=== PATIENT | male | born 1980 | race Caucasian/White ===

== ENCOUNTER 2022-11-13 10:57 | Emergency (ER) | payer OTHER, SELFPAY ==
[2022-11-13 11:04] VITALS: BP 138/88; PULSE 104; RESP 16; TEMP 36.9; O2SAT 99
--- NOTE | 2022-11-13 11:04 | ED.SKABFB ---
HPI - Skin/Abscess/Foreign Bdy General Chief complaint: Skin/Abscess/Foreign Body Stated complaint: Laceration to Thumb Time Seen by Provider: 11/13/22 11:06 Source: patient and RN notes reviewed History of Present Illness HPI narrative: Patient is a 42-year-old male who presents to urgent care with complaints of a laceration to the right thumb. Patient states that occurred last night at around 8:00 p.m. on a vegetable can. Patient states he washed out and wrapped it. States he is unsure of when his last tetanus was. Denies any pain or swelling to the area. States that bleeding has been controlled since approximately midnight. Patient is not diabetic. No other acute complaints. No acute distress noted. Patient aware plan of care. Some parts of this dictation were generated by voice recognition software and may contain typographical and/or grammatical inaccuracies. Related Data Home Medications Medication Instructions Recorded Confirmed buspirone 5 mg tablet 5 mg PO BID PRN Anxiety 11/13/22 11/13/22 gabapentin 100 mg capsule 100 mg PO DAILY 11/13/22 11/13/22 lisinopril 10 mg tablet 10 mg PO DAILY 11/13/22 11/13/22 omeprazole 40 mg capsule,delayed 40 mg PO DAILY 11/13/22 11/13/22 release Allergies Allergy/AdvReac Type Severity Reaction Status Date / Time No Known Allergies Allergy Verified 11/13/22 11:11 Review of Systems Review of Systems: CONSTITUTIONAL: Denies fever, chills, or sweats. EYES: Denies visual changes, redness, or discharge. ENT: Denies rhinorrhea, congestion, sore throat, or otalgia. CARDIOVASCULAR: Denies chest pain, palpitations, or edema. RESPIRATORY: Denies cough or dyspnea. GASTROINTESTINAL: Denies abdominal pain, nausea, vomiting, or diarrhea. GENITOURINARY: Denies dysuria or hematuria. SKIN: Reports a laceration to the right thumb MUSCULOSKELETAL: Denies back pain, joint pain, or myalgia. NEUROLOGIC: Denies headache, numbness, or weakness. All other systems reviewed are negative, except as documented in HPI. PMFSH Comments At the time of my signature, I reviewed and agree with the nursing past medical, surgical, social, and family history. There is no relevant family history pertinent to the patient complaint. Exam Narrative: GENERAL: This is a well-nourished, well-developed patient, in no apparent distress. HEAD: normocephalic, atraumatic. EYES: PERRL. Sclera clear/white. Vision is grossly intact. EARS: External ears normal NOSE: External nose normal with no obvious nasal discharge, nares without redness, no rhinorrhea. THROAT: Mucous membranes moist NECK: Neck supple SKIN: 3cm linear laceration to the palmar Tuft of the right thumb, bleeding controlled. Warm, intact with no suspicious lesions or rash, good texture and turgor. NEURO: awake, alert, and oriented to person, place and time. There were no obvious focal neurologic abnormalities. EXTREMITIES: No erythema, edema or ecchymosis noted to the affected right thumb. Positive strong right radial pulse with capillary refill less than 2 seconds. Course Course Level of Care: Express Care Visit Vital Signs Vital signs: Vital Signs Temperature 98.4 F 11/13/22 11:04 Pulse Rate 104 H 11/13/22 11:04 Respiratory Rate 16 11/13/22 11:04 Blood Pressure 138/88 11/13/22 11:04 Pulse Oximetry 99 11/13/22 11:04 Oxygen Delivery Room Air 11/13/22 11:04 Temperature 98.4 F 11/13/22 11:04 Pulse Rate 104 H 11/13/22 11:04 Respiratory Rate 16 11/13/22 11:04 Blood Pressure 138/88 11/13/22 11:04 Pulse Oximetry 99 11/13/22 11:04 Oxygen Delivery Room Air 11/13/22 11:04 Reviewed MDM - Skin/Abscess/Foreign Bdy MDM Narrative Medical decision making narrative: You are now up-to-date on your tetanus shot. Advised patient to keep the tube gauze on for 24 hours unless it becomes soiled or saturated. Change the bandage as needed daily. Use the metal splint for protection while working. Unfortunately, a
[2022-11-13] MEDS: TETANUS,DIPHTHERIA,AC PERTUSSIS ADULT (0.5 ML) BOOSTRIX IM (11:23)
== END 2022-11-13 11:46 | disposition home or self-care (01) ==
PROVIDERS: Emergency Provider Nurse Practitioner Family; PCP Internal Medicine
DX: S61.011A Laceration without foreign body of right thumb without damage to nail, initial encounter (principal); W26.8XXA Contact with other sharp object(s), not elsewhere classified, initial encounter; Z23 Encounter for immunization
CPT/HCPCS: 29130; 90471; 90715; 99213; G0463

== ENCOUNTER 2024-12-14 11:51 | Emergency (ER) | payer OTHER, SELFPAY ==
[2024-12-14 11:56] VITALS: BP 142/91; PULSE 93; RESP 16; TEMP 37.2; O2SAT 97
[2024-12-14 12:02] VITALS: BP 142/91
--- NOTE | 2024-12-14 12:02 | ED_ITS ---
HPI - Wound/Laceration General Chief Complaint: Wound/Laceration Stated Complaint: Finger Injury Source: patient Mode of arrival: ambulatory Limitations: no limitations History of Present Illness HPI narrative: 44 y/o male presented for wound re-check. Reports a laceration sustained 2 days ago to right index finger with steri strips and glue placed at outside facility. Splint in place. Says he has had small amount of blood seeping from the wound. Denies any other complaints or concerns. Pt says he has not applied anything to the steri strips. Says tetanus was updated last year. Taking cephalexin as prescribed. Related Data Home Medications ?Medication ?Instructions ?Recorded ?Confirmed ?Last Taken ?Type buspirone 5 mg tablet 5 mg PO BID PRN Anxiety 11/13/22 11/13/22 Unknown History gabapentin 100 mg capsule 100 mg PO DAILY 11/13/22 11/13/22 Unknown History lisinopril 10 mg tablet 10 mg PO DAILY 11/13/22 11/13/22 Unknown History omeprazole 40 mg capsule,delayed 40 mg PO DAILY 11/13/22 11/13/22 Unknown History release Allergies Allergy/AdvReac Type Severity Reaction Status Date / Time No Known Allergies Allergy Verified 12/14/24 12:01 Review of Systems Review of Systems: CONSTITUTIONAL: Denies body aches, fever, chills, or sweats. CARDIOVASCULAR: Denies chest pain, palpitations, or edema. RESPIRATORY: Denies cough or dyspnea. GASTROINTESTINAL: Denies abdominal pain, nausea, vomiting, or diarrhea. SKIN: reports oozing laceration right index finger MUSCULOSKELETAL: Denies back pain, joint pain, or myalgia. NEUROLOGIC: Denies numbness, tingling, or weakness. PMFSH Comments At time of signature, I have reviewed and agree with nursing past medical, surgical, social and family history unless otherwise noted. Please see nursing chart for further information. There is no relevant family history pertinent to the presenting complaint Exam Narrative: GENERAL: Well-appearing EYES: conjunctivae clear, and EOMI. ENT: Mucous membranes moist. Oropharynx without edema, erythema or lesions. NECK: Supple CHEST: Clear to auscultation. HEART: Regular rate and rhythm. SKIN: Warm, dry. Right 2nd digit PIP with laceration and steri strips in place from outside facility, scant amount of blood oozing to the radial side of the laceration. CMS intact. Splint in place. NEURO: Alert and oriented x3. Course Course Emergency Course: Patient is aware of diagnosis, understands and agrees to treatment plan. Anticipatory guidance given. Patient agrees to follow-up as directed and is aware of reasons to seek care at the emergency department. Portions of this record may have been created with voice recognition software Level of Care: Express Care Visit Vital Signs Vital signs: Reviewed Procedures Laceration right index finger: ====== Skin Level ====== ====== Subcutaneous Layer ====== ====== Muscle Layer ====== ====== Tendon Layer ====== Dressing: Previously treated wound cleansed with skintegrity and sterile water. Steri strips reinforced. Pt requests to keep the splint from outside facility which appears to be appropriate. MDM - Wound/Laceration MDM Narrative Medical decision making narrative: Discussed physical exam findings, laceration >48 hours reinforced steri strips, will continue current splint and abx. No apparent infection noted. Advised supportive measures and signs/symptoms to go to the ER. Pt is appropriate for outpt treatment and f/u. Differential Diagnosis Differential diagnosis: Likely laceration, abrasion and avulsion of skin Discharge Plan Discharge Clinical Impression: Encounter for re-check of laceration wound Patient Disposition: Home, Self-Care Condition: Stable Instructions: Antibiotic Form, Skin Adhesive Strips (ED) Additional Instructions: Steri-Strips will roll off on their own within 14 days from application Do not soak your wound. Avoid frequent or prolonged contact with water, including heavy perspiration. This may loosen the skin glue before the wound is healed. Keep the area clean and dry - cleanse with warm water and mild soap and allow to fully dry. Leave the finger splint in place; keep it clean and dry. Continue the antibiotic as previously prescribed Watch for worsening symptoms including pain, redness, swelling, streaking, pus/drainage, fever. Go to the ER with any of these symptoms or concerns. Follow up with primary care provider in 1 week as needed. Patient Language: Vietnamese Prescriptions: No Action buspirone 5 mg tablet 5 mg PO BID PRN (Reason: Anxiety) omeprazole 40 mg capsule,delayed release(DR/EC) 40 mg PO DAILY lisinopril 10 mg tablet 10 mg PO DAILY gabapentin 100 mg capsule 100 mg PO DAILY cephalexin 500 mg capsule 500 mg PO Q12H Qty: 20 0RF Follow-up/Referrals: Amol,Kevan Cruz MD [Primary Care Provider] - Time of Disposition: 12:17
--- OUTSIDE RECORDS SUMMARY | 2024-12-14 13:14 | XMS_ITS | Encounter Summary ---
Author Organization [facility] Address [address] [place] [address] Phone Care Team Providers Care Gas Station Clerk Name Role Phone Kevan Carmichael MD Primary Care Provider [phone] Connor Underwood MD Unavailable Reason for Visit * Reason Comments Medication Refill Encounter Details Date Type Department Care Team (Late st Contact Info) Description 02/07/2024 Refill [facility] - Internal Medicine - [place] [address] [place] [address] Kevan Carmichael MD [address] [place] [address] Medication Refill Social History Tobacco Use Types Packs/Day Years Used Date Smoking Tobacco: Former Cigarettes 0.3 16.7 1 999 - 06/21/2015 Passive Smoke Exposure: Past Smokeless Tobacco: Never Alcohol Use Standard Drinks/Week Comments Yes 2 (1 standard drink = 0.6 oz pur e alcohol) Rare [facility] Utilities Answer Date Recorded In the past 12 months has [employer], gas, oil, or water company threatened to shut off services in your home? No 10/27/2023 Social Connection and Isolation Panel [NHANES] A nswer Date Recorded In a typical week, how many times do you talk on the phone with family, friends, or neighbors? Patient declined 10/27/2023 How often do you get togethe r with friends or relatives? Patient declined 10/27/2023 How often do you attend orthodox or mandaeism serv ices? Never 10/27/2023 Do you belong to any clubs o r organizations such as orthodox groups, unions, fraternal or athletic groups, or school groups? Patient declined 10/27/2023 How often do you attend meet ings of the clubs or organizations you belong to? Patient declined 10/27/2023 Are you , , di vorced, , never , or living with a partner? Never 10/27/2023 AUDIT-C Answer Date Recorded Q1: How often do you have a drink containing alc ohol? 2-4 times a month 10/27/2023 Q2: How many drinks containi ng alcohol do you have on a typical day when you are drinking? 1 or 2 10/27/2023 Q3: How often do you have si x or more drinks on one occasion? Never 10/27/2023 Overall Financial Resource Strain (CARDIA) Answe r Date Recorded How hard is it for you to pa y for the very basics like food, housing, medical care, and heating? Not very hard 10/27/2023 PHQ-2 Answer Date Recorded Total Score - Questions 1-9 0 11/19 [facility] - Occupational Stress Questionnaire Answer Date Recorded Do you feel stress - tense, restless, nervous, or anxious, or unable to sleep at night because your mind is troubled all the time - these days? Rather much 10/27/2023 Exercise Vital Sign Answer Date Recorde d On average, how many days pe r week do you engage in moderate to strenuous exercise (like a brisk walk)? 3 days 10/27/2023 On average, how many minutes do you engage in exercise at this level? 30 min 10/27/2023 Hunger Vital Sign Answer Date Recorded Within the past 12 months, y ou worried that your food would run out before you got the money to buy more. Never true 10/27/19 24 Within the past 12 months, t he food you bought just didn't last and you didn't have money to get more. Never true 10/27/2023 PRAPARE - Transportation Answer Date Re corded In the past 12 months, has l ack of transportation kept you from medical appointments or from getting medications? No 02/2024 In the past 12 months, has l ack of transportation kept you from meetings, work, or from getting things needed for daily living? No 10/27/2023 Housing Stability Vital Sign Answer To e Recorded In the last 12 months, was t here a time when you were not able to pay the mortgage or rent on time? Patient declined 10/27/19 24 Number of Places Lived in the Last Year Not on f ile 10/27/2023 In the last 12 months, was t here a time when you did not have a steady place to sleep or slept in a snf (including now)? No 10/27/2023 Education Answer Date Recorded What is the highest level of school you have completed or the highest degree you have received? Bachelor's degree (e.g., BA, AB, BS) 01/13/2023 Sexually Active Control Partners Comments Not Currently Female Sex and Gender Information Value Date Recorded Sex Assigned at Not on file Legal Sex Male 8:06 PM CDT Gender Identity Not on file Sexual Orientation Not on file documented as of this encounter Miscellaneous Notes * Telephone Encounter - Nicole Li RN - 02/08/2024 8:51 AM CDT Medication(s) refilled and signed per [facility] Chronic Medication Refill Standing Order for Pediatricand Adult Patients. Requested Prescriptions Pending Prescriptions Disp Refills omeprazole (PriLOSEC) 40 MG CAPSULE DELAYED RELEASE [Pharmacy Med Name: OMEPRAZOLE DR 40 MG CAPSULE] 90 Capsule 1 Sig: TAKE 1 CAPSULE BY MOUTH EVERY DAY Proton Pump Inhibitors Protocol Passed - 02/07/2024 7:36 AM Passed - Visit with relevant provider in past 12 months or upcoming 90 days Recent Visits Date Type Provider Dept 10/27/23 Office Visit Kevan Carmichael MD [facility] [place] 07/23/23 Office Visit Kevan Carmichael MD [facility] [place] 04/15/23 Office Visit Kevan Carmichael MD [facility] [place] Showing recent visits within past 365 days and meeting all other requirements Future Appointments Date Type Provider Dept 03/22/24 Appointment Kevan Carmichael MD [facility] [place] Showing future appointments within next 90 days and meeting all other requirements documented in this encounter Plan of Treatment Upcoming Encounters Date Type Department Care Team (Late st Contact Info) Description 03/14/2025 10:45 AM CDT Office Visit [facility] - Internal Medicine - [place] [address] [place] [address] Kevan Carmichael MD [address] [place] [address] documented as of this encounter Visit Diagnoses Not on filedocumented in this encounter Additional Health Concerns Assessment Noted Time PHQ-9 Depression Total Score: 0 10/27/19 24 11:01 AM 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
--- OUTSIDE RECORDS SUMMARY | 2024-12-14 13:14 | XMS_ITS | Encounter Summary ---
Author Organization [facility] Address [address] [place] [address] Phone Care Team Providers Care Pulp Roller Name Role Phone Kevan Carmichael MD Primary Care Provider [phone] Connor Underwood MD Unavailable Reason for Visit * Reason Comments Medication Refill Encounter Details Date Type Department Care Team (Late st Contact Info) Description 02/12/2024 Refill [facility] - Internal Medicine - [place] [address] [place] [address] Kevan Carmichael MD [address] [place] [address] Medication Refill Social History Tobacco Use Types Packs/Day Years Used Date Smoking Tobacco: Former Cigarettes 0.3 16.7 1 999 - 06/21/2015 Passive Smoke Exposure: Past Smokeless Tobacco: Never Alcohol Use Standard Drinks/Week Comments Yes 2 (1 standard drink = 0.6 oz pur e alcohol) Rare [facility] Utilities Answer Date Recorded In the past 12 months has [employer], gas, oil, or water company threatened to [...] declined 10/27/2023 How often do you attend amish or bahai serv ices? Never 10/27/2023 Do you belong to any clubs o r organizations such as amish groups, unions, fraternal or athletic groups, or [...] Total Score - Questions 1-9 0 11/19 [facility] - [...] place to sleep or slept in a correction (including now)? No 10/27/2023 Education Answer Date [...] Telephone Encounter - Nicole Li RN - 02/12/2024 10:46 AM CDT Medication failed the protocol, provider to review and approve the medication order if appropriate. Requested Prescriptions Pending Prescriptions Disp Refills LORazepam (ATIVAN) 0.5 MG Tablet [Pharmacy Med Name: LORAZEPAM 0.5 MG TABLET] 30 Tablet 0 Sig: TAKE 1 TABLET BY MOUTH EVERY DAY NEEDED FOR ANXIETY Not Delegated - Benzodiazepines Protocol Failed - 02/12/2024 10:35 AM Failed - This refill cannot be delegated Passed - Visit with relevant provider in past 12 months or upcoming 90 days Recent Visits Date Type Provider Dept 10/27/23 Office Visit Kevan Carmichael MD [facility] [place] 07/23/23 Office Visit Kevan Carmichael MD [facility] [place] 04/15/23 Office [facility] [place] Showing recent visits within past 365 days and meeting all other requirements Future Appointments Date Type Provider Dept 03/22/24 Appointment [facility] [place] Showing future appointments within next 90 days and meeting all other requirements documented in this encounter Plan of Treatment Upcoming Encounters Date Type Department Care Team (Late st Contact Info) Description 03/14/2025 10:45 AM CDT Office Visit [facility] - Internal Medicine - [place] [address] [place] [address] Kevan Carmichael MD [address] [place] [address] documented as of this encounter Visit Diagnoses Diagnosis Generalized anxiety disorder documented in this encounter Additional Health Concerns Assessment Noted Time PHQ-9 Depression Total Score: 0 10/27/19 24 11:01 AM 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
--- OUTSIDE RECORDS SUMMARY | 2024-12-14 13:14 | XMS_ITS | Encounter Summary ---
Author Organization [facility] Address [address] [place] [address] Phone Care Team Providers Care Baseball Player Name Role Phone Kevan Carmichael MD Primary Care Provider [phone] Connor Underwood MD Unavailable Reason for Visit * Reason Comments Medication Refill Encounter Details Date Type Department Care Team (Late st Contact Info) Description 01/13/2024 Refill [facility] - Internal Medicine - [place] [address] [place] [address] Kevan Carmichael MD [address] [place] [address] Medication Refill Social History Tobacco Use Types Packs/Day Years Used Date Smoking Tobacco: Former Cigarettes 0.3 16.7 1 999 - 06/21/2015 Passive Smoke Exposure: Past Smokeless Tobacco: Never Alcohol Use Standard Drinks/Week Comments Yes 2 (1 standard drink = 0.6 oz pur e alcohol) Rare [facility] Utilities Answer Date Recorded In the past 12 months has [employer], gas, oil, or water company threatened to [...] declined 10/27/2023 How often do you attend judaism or presybeterian serv ices? Never 10/27/2023 Do you belong to any clubs o r organizations such as judaism groups, unions, fraternal or athletic groups, or [...] Total Score - Questions 1-9 0 11/19 [facility]at [facility] - Occupational Stress [...] place to sleep or slept in a long term (including now)? No 10/27/2023 Education Answer Date [...] Telephone Encounter - Nicole Li RN - 01/13/2024 1:15 PM CDT Medication failed the protocol, provider to review and approve the medication order if appropriate. Requested Prescriptions Pending Prescriptions Disp Refills LORazepam (ATIVAN) 0.5 MG Tablet [Pharmacy Med Name: LORAZEPAM 0.5 MG TABLET] 30 Tablet 0 Sig: TAKE 1 TABLET BY MOUTH EVERY DAY NEEDED FOR ANXIETY Not Delegated - Benzodiazepines Protocol Failed - 01/13/2024 11:54 AM Failed - This refill cannot be delegated Passed - Visit with relevant provider in past 12 months or upcoming 90 days Recent Visits Date Type Provider Dept 10/27/23 Office Visit Kevan Carmichael MD [facility] [place] 07/23/23 Office Visit Kevan Carmichael MD [facility] [place] 04/15/23 Office Visit Kevan Carmichael MD [facility] [place] 01/14/23 Office Visit Kevan Carmichael MD [facility] [place] Showing recent visits within past 365 days and meeting all other requirements Future Appointments Date Type Provider Dept 01/25/24 Appointment Kevan Carmichael MD [facility] [place] Showing future appointments within next 90 days and meeting all other requirements documented in this encounter Plan of Treatment Upcoming Encounters Date Type Department Care Team (Late st Contact Info) Description 03/14/2025 10:45 AM CDT Office Visit [facility] - Internal Medicine - [place] [address] [place] [address] Kevan Carmichael MD [address] [place] [address] documented as of this encounter Visit Diagnoses Diagnosis Generalized anxiety disorder documented in this encounter Additional Health Concerns Assessment Noted Time PHQ-9 Depression Total Score: 0 10/27/19 24 11:01 AM 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
--- OUTSIDE RECORDS SUMMARY | 2024-12-14 13:14 | XMS_ITS | Encounter Summary ---
Author Organization [facility] Address [address] [place] [address] Phone Care Team Providers Care Assembly Machine Feeder Name Role Phone Kevan Carmichael MD Primary Care Provider Connor Underwood MD Unavailable Reason for Visit * Reason Comments Medication Refill Encounter Details Date Type Department Care Team (Late st Contact Info) Description 01/07/2024 Refill [facility] [place] [address] [place] [address] Kevan Carmichael MD [address] [place] [address] Medication Refill Social History Tobacco Use Types Packs/Day Years Used Date Smoking Tobacco: Former Cigarettes 0.3 16.7 1 999 - 06/21/2015 Passive Smoke Exposure: Past Smokeless Tobacco: Never Alcohol Use Standard Drinks/Week Comments Yes 2 (1 standard drink = 0.6 oz pur e alcohol) Rare [facility] Utilities Answer Date Recorded In the past 12 months has [employer], gas, oil, or water company threatened to [...] declined 10/27/2023 How often do you attend methodist or orthodox serv ices? Never 10/27/2023 Do you belong to any clubs o r organizations such as methodist groups, unions, fraternal or athletic groups, or [...] Total Score - Questions 1-9 0 11/19 [facility] - [...] place to sleep or slept in a fpc (including now)? No 10/27/2023 Education Answer Date [...] Telephone Encounter - Nicole Li RN - 01/07/2024 8:09 AM CDT Medication(s) refilled and signed per [facility] Chronic Medication Refill Standing Order for Pediatricand Adult Patients. Requested Prescriptions Pending Prescriptions Disp Refills busPIRone (BUSPAR) 5 MG Tablet [Pharmacy Med Name: BUSPIRONE HCL 5 MG TABLET] 180 Tablet 1 Sig: TAKE 1 TABLET BY MOUTH TWICE A DAY Buspirone (6 Month Refill Only) Protocol Passed - 01/07/2024 12:46 AM Passed - Visit with relevant provider in past 6 months or upcoming 90 days Recent Visits Date Type Provider Dept 10/27/23 [facility] [place] 07/23/23 Office Visit [facility] [place] Showing recent visits within past 182 days and meeting all other requirements Future Appointments Date Type Provider Dept 01/25/24 Appointment [facility] [place] Showing future appointments within next 90 days and meeting all other requirements Passed - Has an encounter in the past 6 months with a depression or anxiety visit diagnosis Passed - Patient has established therapy with Buspirone for at least 6 months documented in this encounter Plan of Treatment Upcoming Encounters Date Type Department Care Team (Late st Contact Info) Description 03/14/2025 10:45 AM CDT Office Visit [facility] - [place] [address] [place] [address] Kevan Carmichael MD [address] [place] [address] documented as of this encounter Visit Diagnoses Not on filedocumented in this encounter Additional Health Concerns Assessment Noted Time PHQ-9 Depression Total Score: 0 10/27/19 24 11:01 AM WAX MACHINE OPERATOR documented as of this encounter Care Teams Assembly Machine Feeder Relationship Specialty Start Date End Date Kevan Carmichael MD [address] [place] [address] PCP - General Internal Medicine 12/16/17 Connor Underwood MD [address] [address] Consulting Physician Colon and Rectal Surgery 07/15/23 documented as of this encounter
--- OUTSIDE RECORDS SUMMARY | 2024-12-14 13:14 | XMS_ITS | Encounter Summary ---
Author Organization [facility] Address [address] [place] [address] Phone Care Team Providers Care Senior Net Web Developer Name Role Phone Kevan Carmichael MD Primary Care Provider [phone] Connor Underwood MD Unavailable Reason for Visit * Reason Comments Medication Refill Encounter Details Date Type Department Care Team (Late st Contact Info) Description 08/28/2023 Refill [facility] - [place] [address] [place] [address] Kevan Carmichael MD [address] [place] [address] Medication Refill Social History Tobacco Use Types Packs/Day Years Used Date Smoking Tobacco: Former Cigarettes 0.3 16.7 1 999 - 06/21/2015 Passive Smoke Exposure: Past Smokeless Tobacco: Never Alcohol Use Standard Drinks/Week Comments Yes 2 (1 standard drink = 0.6 oz pur e alcohol) Rare PHQ-2 Answer Date Recorded Total Score - Questions 1-9 0 11/19 Education Answer Date Recorded What is the [...] on file Sexual Orientation Not on file COVID-19 Exposure Response Date Recorded In the last 10 days, have yo u been in contact with someone who was confirmed or suspected to have Coronavirus/COVID-19? No / Unsure 07/30/2023 2:18 PM RECEPTIONIST CLERK documented as of this encounter Miscellaneous Notes * Telephone Encounter - Nicole Li RN - 08/28/2023 8:48 AM CST Medication failed the protocol, provider to review and approve the medication order if appropriate. Requested Prescriptions Pending Prescriptions Disp Refills lisinopril (PRINIVIL, ZESTRIL) 10 MG Tablet [Pharmacy Med Name: LISINOPRIL 10 MG TABLET] 90 Tablet 0 Sig: TAKE 1 TABLET BY MOUTH EVERY DAY AZEEM Inhibitors Protocol Failed - 08/28/2023 12:56 AM Failed - Serum potassium on record in past 12 months No results found for: POTASSIUM , POCTK Failed - GFR on record in past 12 months No results found for: GFRNA Passed - Blood pressure on record in past 12 months Clinician-entered: BP Readings from Last 3 Encounters: 07/23/23 122/70 07/22/23 138/82 04/15/23 122/66 Patient-entered: No data recorded Passed - Visit with relevant provider in past 12 months or upcoming 90 days Recent Visits Date Type Provider Dept 07/23/23 Office Visit Kevan Carmichael MD [facility] [place] 04/15/23 Office Visit Kevan Carmichael MD [facility] [place] 01/14/23 Office Visit Kevan Carmichael MD [facility] [place] 10/16/22 Office Visit Kevan Carmichael MD [facility] [place] Showing recent visits within past 365 days and meeting all other requirements Future Appointments Date Type Provider Dept 10/27/23 Appointment Kevan Carmichael MD [facility] [place] Showing future appointments within next 90 days and meeting all other requirements PTIONIST CLERK documented in this encounter Plan of Treatment Upcoming Encounters Date Type Department Care Team (Late st Contact Info) Description 03/14/2025 10:45 AM CDT Office Visit [facility] - [place] [address] [place] [address] Kevan Carmichael MD [address] [place] [address] documented as of this encounter Visit Diagnoses Not on filedocumented in this encounter Additional Health Concerns Assessment Noted Time PHQ-9 Depression Total Score: 0 12/04/19 21 2:00 PM CDT documented as of this encounter Care Teams Senior Net Web Developer Relationship Specialty Start Date End Date Kevan Carmichael MD [address] [place] [address] PCP - General Internal Medicine 12/16/17 Connor Underwood MD [address] [address] Consulting Physician Colon and Rectal Surgery 07/15/23 documented as of this encounter
--- OUTSIDE RECORDS SUMMARY | 2024-12-14 13:14 | XMS_ITS | Clinical Summary ---
Author Organization [facility] Address [address] [place] [address] Care Team Providers Care Nca Certified Concierge Name Role Phone Unavailable Primary Care Provider Unavailabl e Source Comments [facility],non-owned Affiliates and Associated Physician Practices is amultiple site organization consisting of ambulatory clinics and hospital sitesin [place]. This disclosure is being madepursuant to the Care Everywhere program and may not contain all information available regarding this patient. Last updated 18.[facility] Allergies No known active allergies Medications * Be aware that medications may not be up to date on this document. Alwaysverify current medications with the patient. Medication Sig Dispensed Refills Start Date End Date Status OMEPRAZOLE PO Active methylPREDNISolone (MEDROL DOSEPAK) 4 MG tabletIndications:Pit yriasis rosea Take by mouth as directed 1 Each 02/03/2017 Active nystatin (MYCOSTATIN) 514739 UNIT/GM creamIndications:Pity riasis rosea Apply to affected area 2 times daily 30 g 02/03/2017 Active Social History Tobacco Use Types Packs/Day Years Used Date Smoking Tobacco: Never Assessed Sex and Gender Information Value Date Recorded Sex Assigned at Not on file Gender Identity Not on file Sexual Orientation Not on file Last Filed Vital Signs Vital Sign Reading Time Taken Comments Blood Pressure 128/94 02/03/2017 2:45 PM CDT Pulse 94 02/03/2017 2:45 PM CDT Temperature 36.9 C (98.4 F) 02/03/2017 2:45 PM CDT Respiratory Rate - - Oxygen Saturation - - Inhaled Oxygen Concentration - - Weight 122.5 kg (270 lb) 02/03/2017 2:45 PM CDT Height 172.7 cm (5' 8 ) 02/03/2017 2:45 PM CDT Body Mass Index 41.05 02/03/2017 2:45 PM CDT Plan of Treatment Health Maintenance Due Date Last Done Comments COLMARGARET (AGES 45-75) - COL ON CA SCREENING 1978 COLON MONITORING 1978 COLONOSCOPY - COLON CA SCREENING 1978 CT COLONOGRAPHY - COLON CA SCREENING 1978 Colorectal Cancer Screening 1978 FIT - COLON CA SCREENING 1978 FLEX SIG - COLON CA SCREENING 1978 LIPID TESTING 1978 HIV SCREENING 1993 HEPATITIS C SCREENING 04/26/1996 DTAP/TDAP/TD VACCINES (1 - Tdap) 1997 HEPATITIS B VACCINE (1 of 3 - 19+ 3-dose series) 1997 COVID-19 VACCINE ( - 2023-2 5 season) 2024 INFLUENZA VACCINE (#1) 2024 DEPRESSION SCREENING 09/21/2024 ZOSTER VACCINE (1 of 2) 2028 HIB VACCINE Aged Out No longer eligi ble based on patient's age to complete this topic HPV VACCINE Aged Out No longer eligi ble based on patient's age to complete this topic MENINGOCOCCAL (Group B) VACC INE SHARED DECISION-MAKING Aged Out No longer eligibl e based on patient's age to complete this topic MENINGOCOCCAL GROUPS A/C/Y/W VACCINE Aged Out No longer eligible b ased on patient's age to complete this topic PNEUMOCOCCAL VACCINE Aged Out No long er eligible based on patient's age to complete this topic
--- OUTSIDE RECORDS SUMMARY | 2024-12-14 13:14 | XMS_ITS | Encounter Summary ---
Author Organization [facility] Address [address] [place] [address] Phone Care Team Providers Care Senior Staff Psychologist Name Role Phone Kvean Carmichael MD Primary Care Provider Connor Underwood MD Unavailable Reason for Visit * Reason Comments Medication Refill Encounter Details Date Type Department Care Team (Late st Contact Info) Description 03/07/2023 Refill [facility] - [place] [address] [place] [address] Kevan Carmichael MD [address] [place] [address] Medication Refill Social History Tobacco Use Types Packs/Day Years Used Date Smoking Tobacco: Former Cigarettes 0.3 10 1 - 06/21/2015 Passive Smoke Exposure: Past Smokeless Tobacco: Never Alcohol Use Standard Drinks/Week Comments Yes 2 (1 standard drink = 0.6 oz pur e alcohol) PHQ-2 Answer Date Recorded Total Score - Questions 1-9 0 11/19 Education Answer Date Recorded What is the highest level of school you have completed or the highest degree you have received? Bachelor's degree (e.g., BA, AB, BS) 01/13/2023 Sexually Active Control Partners Comments Not Currently Sex and Gender Information Value Date Recorded Sex Assigned at Not on file Legal Sex Male 8:06 PM CDT Gender Identity Not on file Sexual Orientation Not on file documented as of this encounter Miscellaneous Notes * Telephone Encounter - Nicole Li RN - 03/09/2023 8:30 AM CDT Medication failed the protocol, provider to review and approve the medication order if appropriate. Requested Prescriptions Pending Prescriptions Disp Refills lisinopril (PRINIVIL, ZESTRIL) 10 MG Tablet [Pharmacy Med Name: LISINOPRIL 10 MG TABLET] 90 Tablet 1 Sig: TAKE 1 TABLET BY MOUTH EVERY DAY AZEEM Inhibitors Protocol Failed - 03/07/2023 7:49 AM Failed - Serum potassium on record in past 12 months No results found for: POTASSIUM, POCTK Failed - GFR on record in past 12 months No results found for: GFRNA Passed - Blood pressure on record in past 12 months Clinician-entered: BP Readings from Last 3 Encounters: 01/14/23 128/74 10/16/22 128/80 06/12/22 128/82 Patient-entered: No data recorded Passed - Visit with relevant provider in past 12 months or upcoming 90 days Recent Visits Date Type Provider Dept 01/14/23 Office Visit Kevan Carmichael MD [facility] [place] 10/16/22 Office Visit Kevan Carmichael MD [facility] [place] 06/12/22 Office Visit Kevan Carmichael MD [facility] [place] 04/28/22 Office Visit Stephanie Blackmon, SYDNIE [facility] [place] 04/15/22 Office Visit Kevan Carmichael MD [facility] [place] 03/26/22 Office Visit Stephanie Blackmon, PAC [facility] [place] Showing recent visits within past 365 days and meeting all other requirements Future Appointments Date Type Provider Dept 04/15/23 Appointment Kevan Carmichael MD [facility] [place] Showing future appointments within next 90 days and meeting all other requirements documented in this encounter Plan of Treatment Upcoming Encounters Date Type Department Care Team (Late st Contact Info) Description 03/14/2025 10:45 AM CDT Office Visit [facility] - Internal [facility] - [place] [address] [place] [address] Kevan Carmichael MD [address] [place] [address] documented as of this encounter Visit Diagnoses Not on filedocumented in this encounter Additional Health Concerns Assessment Noted Time PHQ-9 Depression Total Score: 0 12/04/19 21 2:00 PM CDT documented as of this encounter Care Teams Senior Staff Psychologist Relationship Specialty Start Date End Date Kevan Carmichael MD [address] [place] [address] PCP - General Internal Medicine 12/16/17 Connor Underwood MD [address] [address] Consulting Physician Colon and Rectal Surgery 07/15/23 documented as of this encounter
--- OUTSIDE RECORDS SUMMARY | 2024-12-14 13:14 | XMS_ITS | Clinical Summary ---
Author Organization [facility] Address [address] [place] [address] Care Team Providers Care Assembly Technician Name Role Phone Kevan Carmichael MD Primary Care Provider [phone] Kevan Carmichael MD Unavailable [phone] Allergies No known active allergies Medications omeprazole (PriLOSEC) 40 mg capsule Take 1 capsule (40 mg total) by mouth daily 1 Active lisinopriL (PRINIVIL,ZESTR [place]) 10 mg tablet Take 1 tablet (10 mg total) by mouth daily 0 Active LORazepam (ATIVAN) 0.5 mg tablet Take 1 tablet (0.5 mg total) by mouth daily as needed 2 Active busPIRone (BUSPAR) 5 mg tablet Take 1 tablet (5 mg total) by mouth 2 (two) times a day 2 Active fluticasone propionate (FLONASE) 50 mcg/actuation nasal sprayIndication s:Seasonal allergic rhinitis due to pollen,Anosmia Administer 2 sprays into each nostril daily 16 g 11 2 Active Additional Information Patient not taking.Reported on 08/13/2024 gabapentin (NEURONTIN) 100 mg capsule Take 1 capsule (100 mg total) by mouth daily 4 Active albuterol HFA (PROVENTIL HFA,VENTOLIN HFA,PROAIR HFA) 90 mcg/actuation inhalerIndicati ons:Bronchitis Inhale 2 puffs every 4 (four) hours as needed for shortness of breath or wheezing 18 g 5 Active inhalational spacing device (Aerochamber MV) spacerIndicatio ns:Bronchitis Use with albuterol inhaler 1 each 5 Active Active Problems Problem Noted Date Diagnosed Date Seasonal allergic rhinitis due to pollen 022 Assessment & Plan (06/17/2022 3:12 PM CDT): Flonase 2 sprays into each nostril while looking down over the sink, do not sniff in or blow nose after use for at least 30 minutes Smell Retraining Therapy, call if no improvement in 2 months for referral to [facility] History of kidney stones 06/02/2022 Right renal stone 07/17/2021 Overview (07/17/2021): Added automatically from request for surgery [id number] Right ureteral stone 07/17/2021 Overview (07/17/2021): Added automatically from request for surgery [id number] COVID-19 virus infection 10/07/2020 Essential (primary) hypertension 08/24/2019 Encounters Date Type Department Care Team Description 11/23/2024 12:38 PM ROLL TABLE OPERATOR - 11/23/2024 11:59 PM ROLL TABLE OPERATOR Hospital Encounter [facility] [address] [place] [address] Bronchitis Discharge Disposition: Discharge to home or self care 11/23/2024 11:30 AM ROLL TABLE OPERATOR Office Visit [facility] [place] [address] [address] Elsa Russell NP Bronchitis (Primary Dx) 11/23/2024 Results Follow-Up [facility] [place] [address] [address] Elsa Russell NP from Last 3 Months Immunizations Immunization Administration Dates Next Due Robert (J&J) SARS-CoV-2 Vaccination 02/01/2021 Surgical History Surgery Date Site/Laterality Comments DENTAL SURGERY Medical History Medical History Date Comments Hypertension GERD (gastroesophageal reflux disease) Kidney stones Family History Medical History Relation Name Comments Prostate cancer Father Diabetes Mother Fibromyalgia Mother Relation Name Status Comments Father Mother Social History Tobacco Use Types Packs/Day Years Used Date Smoking Tobacco: Former Cigarettes Q uit: 2016 Smokeless Tobacco: Never Tobacco Cessation:Counseling Given: Not Answered Sex and Gender Information Value Date Recorded Sex Assigned at Not on file Legal Sex Male 11:09 AM ROLL TABLE OPERATOR Gender Identity Not on file Sexual Orientation Not on file Obstetrics History Last Filed Vital Signs Vital Sign Reading Time Taken Comments Blood Pressure 136/74 11/23/2024 11:36 AM ROLL TABLE OPERATOR Pulse 93 11/23/2024 11:36 AM ROLL TABLE OPERATOR Temperature 36.8 C (98.3 F) 11/23/2024 11:36 AM ROLL TABLE OPERATOR Respiratory Rate 20 11/23/2024 11:36 AM ROLL TABLE OPERATOR Oxygen Saturation 99% 11/23/2024 11:36 AM ROLL TABLE OPERATOR Inhaled Oxygen Concentration - - Weight 158.8 kg (350 lb) 11/23/2024 11:36 AM ROLL TABLE OPERATOR Height 172.7 cm (5' 8 ) 11/23/2024 11:36 AM ROLL TABLE OPERATOR Body Mass Index 53.22 11/23/2024 11:36 AM ROLL TABLE OPERATOR Plan of Treatment Health Maintenance Due Date Last Done Comments Colon Cancer Screening-Colonoscopy 1978 Depression Screening 1978 Hepatitis C Screening 1978 Prostate Cancer Screening-PSA 1978 Hepatitis B Screening 1996 Regular Well Visit/Exam 18-64 1996 Covid-19 Vaccine (2 - 2023- season) 2024 02/01/2021 DTaP/Tdap/Td Vaccine (2 - Td or Tdap) 11/13/2032 11/13/2022 Influenza Vaccine Completed 08/29/2024, , 06/12/2022, Additional history exists HPV Vaccines Aged Out No longer eligi ble based on patient's age to complete this topic Pneumococcal vaccine <65 Aged Out No longer eligible based on patient's age to complete this topic Medical Devices Explanted Type Area Supervisor Communications And Signals Device Identifier Shelf Expiration Date Model / Serial / Lot [employer] [id number] Universa 6fr 26cm Radiopaque Positioner Monofilament Tether - [id number] Implanted:Qty: 1 on 07/29/2021 by Champ Key DO at [facility] Explanted:Qty: 1 on 10/16/2021 by Champ Key DO Right: [employer] 05/30/2024 [id number] / / [id number] Procedures Procedure Name Priority Date/Time Associated Diagnosis Comments XR CHEST PA LATERAL 2 VIEWS Schedule RUSSELL, Read RUSSELL (Appt Today, Awaiting Results) 11/23/2024 12:47 PM ROLL TABLE OPERATOR Bronchitis POC INFLUENZA A/B, COVID-19 ANTIGEN Routine 11/23/2024 12:08 PM ROLL TABLE OPERATOR Bronchitis from Last 3 Months Results * XR Chest Pa Lateral 2 Views (11/23/2024 12:47 PM ROLL TABLE OPERATOR) Anatomical Region Laterality Modality Body, Chest N/A Computed Radiogr aphy 11/23/2024 2:34 PM ROLL TABLE OPERATOR Narrative 11/23/2024 2:36 PM ROLL TABLE OPERATOR EXAM DESCRIPTION: XR CHEST PA LATERAL 2 VIEWS REASON FOR STUDY: shortness of breath Increased cough and crackling sensation for 2-3 days. No fever. Mild shortness of breath with exertion. Auscultation revealed bronchial noises. Family history of recent bronchitis and pneumonia. HTN-medicated. Former Smoker TECHNIQUE: There are 2 radiographic view(s) of the chest. COMPARISON: No prior. FINDINGS: LUNGS: Pulmonary vascularity appears normal. No confluent infiltrate or effusion. Costophrenic angles are sharp. Patient demonstrates an incidental azygous accessory fissure, normal variant. HEART/MEDIASTINUM: Mild tortuosity of the aorta. Otherwise, normal cardiomediastinal silhouette. LINES/TUBES: None. BONES: Mild spondylosis thoracic spine. Mild depression likely T12 vertebral body anteriorly. Margins appear smooth favoring more chronic finding. Correlate clinically to ensure no acute foci of pain or injury. IMPRESSION: No acute findings or infiltrate. Mild depression likely T12 vertebral body anteriorly. Margins appear smooth favoring more chronic finding. Follow-up could be obtained only as clinically warranted. THIS IS AN ELECTRONICALLY VERIFIED FINAL REPORT 11/23/2024 2:36 PM - Electronically signed by Jarred Gamboa M.D. MJ: RANDI Report ID: [id number] Reading Location: [id number] Procedure Note Jarred Gamboa MD - 11/23/2024 EXAM DESCRIPTION: XR CHEST PA LATERAL 2 VIEWS REASON FOR STUDY: shortness of breath Increased cough and crackling sensation for 2-3 days. No fever. Mildshortness of breath with exertion. Auscultation revealed bronchial noises. Family history of recent bronchitis and pneumonia. HTN-medicated. Former Smoker TECHNIQUE: There are 2 radiographic view(s) of the chest. COMPARISON: No prior. FINDINGS: LUNGS: Pulmonary vascularity appears normal. No confluent infiltrate or effusion. Costophrenic angles are sharp. Patient demonstrates anincidental azygous accessory fissure, normal variant. HEART/MEDIASTINUM: Mild tortuosity of the aorta. Otherwise, normal cardiomediastinal silhouette. LINES/TUBES: None. BONES: Mild spondylosis thoracic spine. Mild depression likely [id number] body anteriorly. Margins appear smooth favoring more chronic finding. Correlate clinically to ensure no acute foci of pain or injury. IMPRESSION: No acute findings or infiltrate. Mild depression likely T12 vertebral body anteriorly. Margins appearsmooth favoring more chronic finding. Follow-up could be obtained only asclinically warranted. THIS IS AN ELECTRONICALLY VERIFIED FINAL REPORT 11/23/2024 2:36 PM - Electronically signed by Jarred Gamboa M.D. MJ: RANDI Report ID: [id number] Reading Location: [id number] Elsa Russell TECHNICAL SALES ASSOCIATE IMG XR PROCEDURES Final Result * POC Influenza A/B, COVID-19 antigen (11/23/2024 12:08 PM ROLL TABLE OPERATOR) Influenza A Ag, POC Negative Negative [facility] Influenza B Ag, POC Negative Negative [facility] COVID-19 Ag POC Presumptive Negative Presumptive Negative, Invalid [facility] Nasal 11/23/2024 12:0 8 PM ROLL TABLE OPERATOR us Elsa Russell NP POINT OF CARE TEST ORDERABLES Final Result [facility] [place] [address], [facility] from Last 3 Months [facility] [employer] HMO Care Teams Assembly Technician Relationship Specialty Start Date End Date Kevan Carmichael MD [address] [place] [address] PCP - General 10/08/20 Kevan Carmichael MD [address] [place] [address] Internal Medicine 10/08/20
--- OUTSIDE RECORDS SUMMARY | 2024-12-14 13:14 | XMS_ITS | Encounter Summary ---
Author Organization [facility] Address [address] [place] [address] Phone Care Team Providers Care Proposal Coordinator Name Role Phone Kevan Carmichael MD Primary Care Provider [phone] Connor Underwood MD Unavailable Reason for Visit * Reason Comments Medication Refill Encounter Details Date Type Department Care Team (Late st Contact Info) Description 11/24/2020 [facility]ill [facility] - [place] [address] [place] [address] Kevan Carmichael MD [address] [place] [address] Medication Refill Social History Tobacco Use Types Packs/Day Years Used Date Smoking Tobacco: Former Cigarettes 0.3 10 1 - 06/21/2015 Smokeless Tobacco: Never Alcohol Use Standard Drinks/Week Comments Yes 2 (1 standard drink = 0.6 oz pur e alcohol) 2x week, Beer PHQ-2 Answer Date Recorded Total Score - Questions 1-9 0 04/2020 Sexually Active Control Partners Comments Not Currently Sex and Gender Information Value Date Recorded Sex Assigned at Not on file Legal Sex Male 8:06 PM CDT Gender Identity Not on file Sexual Orientation Not on file documented as of this encounter Miscellaneous Notes * Telephone Encounter - Mary Kay Paula RN - 11/26/2020 9:21 AM CST Please review and sign. OR INTERACTIVE PRODUCER documented in this encounter Plan of Treatment Upcoming Encounters Date Type Department Care Team (Late st Contact Info) Description 03/14/2025 10:45 AM CDT Office Visit [facility] [address] [place] [address] Kevan Carmichael MD [address] [place] [address] documented as of this encounter Visit Diagnoses Not on filedocumented in this encounter Additional Health Concerns Assessment Noted Time PHQ-9 Depression Total Score: 0 05/29/20 20 1:00 PM CDT documented as of this encounter Care Teams Proposal Coordinator Relationship Specialty Start Date End Date Kevan Carmichael MD [address] [place] [address] PCP - General Internal Medicine 12/16/17 Connor Underwood MD [address] [address] Consulting Physician Colon and Rectal Surgery 07/15/23 documented as of this encounter
--- OUTSIDE RECORDS SUMMARY | 2024-12-14 13:14 | XMS_ITS | Referral Summary ---
Author Organization [address] Address [address] [place] [address] Care Team Providers Care Canteen Manager Name Role Phone Kevan Carmichael MD Primary Care Provider [phone] Kevan Carmichael MD Unavailable [phone] Encounters Date Type Department Care Team Description 11/23/2024 Results Follow-Up [facility] Medical [facility] at [address] [place] [address] Elsa Russell NP 11/23/2024 12:38 PM MANAGER INSURANCE - 11/23/2024 11:59 PM MANAGER INSURANCE Hospital Encounter [address] [address] Bronchitis Discharge Disposition: Discharge to home or self care 11/23/2024 11:30 AM MANAGER INSURANCE Office Visit [facility] Care at [address] [place] [address] Elsa Russell NP Bronchitis (Primary Dx) from Last 3 Months Allergies No known active allergies Medications omeprazole [...] improvement in 2 months for referral to [facility] History of kidney stones 06/02/2022 Right renal stone 07/17/2021 Overview (07/17/2021): Added automatically from request for surgery [id number] Right ureteral stone 07/17/2021 Overview (07/17/2021): Added automatically from request for surgery [id number] COVID-19 virus infection 10/07/2020 Essential (primary) hypertension 08/24/2019 Immunizations Immunization Administration Dates Next Due [employer] (J[employer]) SARS-CoV-2 Vaccination 02/01/2021 Social History Tobacco Use Types Packs/Day Years Used Date Smoking Tobacco: Former Cigarettes Q uit: 2016 Smokeless Tobacco: Never Tobacco Cessation:Counseling Given: Not Answered Sex and Gender Information Value Date Recorded Sex Assigned at Not on file Legal Sex Male 11:09 AM MANAGER INSURANCE Gender Identity Not on file Sexual Orientation Not on file Last Filed Vital Signs Vital Sign Reading Time Taken Comments Blood Pressure 136/74 11/23/2024 11:36 AM MANAGER INSURANCE Pulse 93 11/23/2024 11:36 AM MANAGER INSURANCE Temperature 36.8 C (98.3 F) 11/23/2024 11:36 AM MANAGER INSURANCE Respiratory Rate 20 11/23/2024 11:36 AM MANAGER INSURANCE Oxygen Saturation 99% 11/23/2024 11:36 AM MANAGER INSURANCE Inhaled Oxygen Concentration - - Weight 158.8 kg (350 lb) 11/23/2024 11:36 AM MANAGER INSURANCE Height 172.7 cm (5' 8 ) 11/23/2024 11:36 AM MANAGER INSURANCE Body Mass Index 53.22 11/23/2024 11:36 AM MANAGER INSURANCE Plan of Treatment Not on file Medical Devices Explanted Type Area Associate Brand Manager Device Identifier Shelf Expiration Date Model / Serial / Lot [employer] [id number] Universa 6fr 26cm Radiopaque Positioner Monofilament Tether - [id number] Implanted:Qty: 1 on 07/29/2021 by Champ Key DO at [facility] Explanted:Qty: 1 on 10/16/2021 by Champ Key DO Right: [employer] 05/30/2024 [id number] / / [id number] Procedures Procedure Name Priority Date/Time Associated Diagnosis Comments XR CHEST PA LATERAL 2 VIEWS Schedule RUSSELL, Read RUSSELL (Appt Today, Awaiting Results) 11/23/2024 12:47 PM MANAGER INSURANCE Bronchitis POC INFLUENZA A/B, COVID-19 ANTIGEN Routine 11/23/2024 12:08 PM MANAGER INSURANCE Bronchitis from Last 3 Months Results * XR Chest Pa Lateral 2 Views (11/23/2024 12:47 PM MANAGER INSURANCE) Anatomical Region Laterality Modality Body, Chest N/A Computed Radiogr aphy 11/23/2024 2:34 PM MANAGER INSURANCE Narrative 11/23/2024 2:36 PM MANAGER INSURANCE EXAM DESCRIPTION: XR CHEST PA LATERAL 2 [...] Jarred Gamboa M.D. MJ: RANDI Report ID: [id number] Reading Location: [id number] Procedure Note Jarred Gamboa MD - 11/23/2024 [...] Mild spondylosis thoracic spine. Mild depression likely [id number] body anteriorly. Margins appear smooth favoring more [...] Jarred Gamboa M.D. MJ: RANDI Report ID: [id number] Reading Location: [place] [address] Elsa Russell REVENUE DIRECTOR IMG XR PROCEDURES Final Result * POC Influenza A/B, COVID-19 antigen (11/23/2024 12:08 PM MANAGER INSURANCE) Influenza A Ag, POC Negative Negative [facility] Influenza B Ag, POC Negative Negative [facility] COVID-19 Ag POC Presumptive Negative Presumptive Negative, Invalid [facility] Nasal 11/23/2024 12:0 8 PM MANAGER INSURANCE Elsa Russell NP POINT OF CARE TEST ORDERABLES Final Result [facility] [address] [place] [address], [facility] from Last 3 Months Insurance [facility] Care Teams Canteen Manager Relationship Specialty Start Date End Date Kevan Carmichael MD [address] [place] [address] PCP - General 10/08/20 Kevan Carmichael MD [address] [place] [address] Internal Medicine 10/08/20
--- OUTSIDE RECORDS SUMMARY | 2024-12-14 13:15 | XMS_ITS | Encounter Summary ---
Author Organization [facility] Address [address] [place] [address] Phone Care Team Providers Care Speed Belt Sander Tender Name Role Phone Kevan Carmichael MD Primary Care Provider Connor Underwood MD Unavailable Reason for Visit * Reason Comments Medication Refill Encounter Details Date Type Department Care Team (Late st Contact Info) Description 11/30/2023 Refill [facility] - [place] [address] [place] [address] Stephanie Blackmon, [facility] [address] [place] [address] Medication Refill Social History Tobacco Use Types Packs/Day Years Used Date Smoking Tobacco: Former Cigarettes 0.3 16.7 1 999 - 06/21/2015 Passive Smoke Exposure: Past Smokeless Tobacco: Never Alcohol Use Standard Drinks/Week Comments Yes 2 (1 standard drink = 0.6 oz pur e alcohol) Rare [facility] Utilities Answer Date Recorded In the past 12 months has [employer], gas, oil, or water company threatened to [...] declined 10/27/2023 How often do you attend oriental orthodox or methodist serv ices? Never 10/27/2023 Do you belong to any clubs o r organizations such as oriental orthodox groups, unions, fraternal or athletic groups, [...] Total Score - Questions 1-9 0 11/19 [facility] - Occupational Stress [...] Telephone Encounter - Nicole Li RN - 11/30/2023 9:24 AM CDT Medication failed the protocol, provider to review and approve the medication order if appropriate. Requested Prescriptions Pending Prescriptions Disp Refills lisinopril (PRINIVIL, ZESTRIL) 10 MG Tablet [Pharmacy Med Name: LISINOPRIL 10 MG TABLET] 90 Tablet 0 Sig: TAKE 1 TABLET BY MOUTH EVERY DAY AZEEM Inhibitors Protocol Failed - 11/30/2023 12:47 AM Failed - Serum potassium on record in past 12 months No results found for: POTASSIUM , POCTK Failed - GFR on record in past 12 months No results found for: GFRNA Passed - Blood pressure on record in past 12 months Clinician-entered: BP Readings from Last 3 Encounters: 10/27/23 124/72 08/31/23 117/84 07/23/23 122/70 Patient-entered: No data recorded Passed - Visit with relevant provider in past 12 months or upcoming 90 days Recent Visits Date Type Provider Dept 10/27/23 Office Visit Kevan Carmichael MD [facility] 07/23/23 Office Visit Kevan Carmichael MD [facility] [place] 04/15/23 Office Visit Kevan Carmichael MD [facility] [place] 01/14/23 Office Visit Kevan Carmichael MD [facility] [place] Showing recent visits within past 365 days and meeting all other requirements Future Appointments Date Type Provider Dept 01/25/24 Appointment Kevan Carmichael MD [facility] [place] Showing future appointments within next 90 days and meeting all other requirements documented in this encounter Plan of Treatment Upcoming Encounters Date Type Department Care Team (Late st Contact Info) Description 03/14/2025 10:45 AM CDT Office Visit [facility] [address] [place] [address] Kevan Carmichael MD [address] [place] [address] documented as of this encounter Visit Diagnoses Not on filedocumented in this encounter Additional Health Concerns Assessment Noted Time PHQ-9 Depression Total Score: 0 10/27/19 24 11:01 AM APPLIED BEHAVIOR SPECIALIST documented as of this encounter Care Teams Speed Belt Sander Tender Relationship Specialty Start Date End Date Kevan Carmichael MD [address] [place] [address] PCP - General Internal Medicine 12/16/17 Connor Underwood MD #[address] [address] Consulting Physician Colon and Rectal Surgery 07/15/23 documented as of this encounter
--- OUTSIDE RECORDS SUMMARY | 2024-12-14 13:15 | XMS_ITS | Encounter Summary ---
Author Organization [facility] Address [address] [place] [address] Phone Care Team Providers Care Auto Body Worker Name Role Phone Kevan Carmichael MD Primary Care Provider Connor Underwood MD Unavailable Reason for Visit * Reason Comments Medication Refill Encounter Details Date Type Department Care Team (Late st Contact Info) Description 06/22/2022 Refill [facility] - [place] [address] [place] [address] Kevan Carmichael MD [address] [place] [address] Medication Refill Social History Tobacco Use Types Packs/Day Years Used Date Smoking Tobacco: Former Cigarettes 0.3 10 1 - 06/21/2015 Smokeless Tobacco: Never Alcohol Use Standard Drinks/Week Comments Yes 2 (1 standard drink = 0.6 oz pur e alcohol) PHQ-2 Answer Date Recorded Total Score - Questions 1-9 0 11/19 Sexually Active Control Partners Comments Not Currently [...] suspected to have Coronavirus/COVID-19? No / Unsure 06/12/2022 9:47 AM CDT documented as of this encounter Miscellaneous Notes * Telephone Encounter - Mary Kay Paula RN - 06/23/2022 11:32 AM CDT Medication failed the protocol, provider to review and approve the medication order if appropriate. Requested Prescriptions Pending Prescriptions Disp Refills busPIRone (BUSPAR) 5 MG Tablet [Pharmacy Med Name: BUSPIRONE HCL 5 MG TABLET] 60 Tablet 1 Sig: TAKE 1 TABLET BY MOUTH TWICE A DAY Buspirone (6 Month Refill Only) Protocol Failed - 06/22/2022 9:32 AM Failed - Patient has established therapy with Buspirone for at least 6 months Passed - Visit with relevant provider in past 6 months or upcoming 90 days Recent Visits Date Type Provider Dept 06/12/22 Office Visit Kevan Carmichael MD [facility] [place] 04/28/22 Office Visit Stephanie Blackmon PAC [facility] [place] 04/15/22 Office Visit Kevan Carmichael MD [facility] [place] 03/26/22 Office Visit Stephanie Blackmon PAC [facility] [place] Showing recent visits within past 182 days and meeting all other requirements Future Appointments No visits were found meeting these conditions. Showing future appointments within next 90 days and meeting all other requirements Passed - Has an encounter in the past 6 months with a depression or anxiety visit diagnosis documented in this encounter Plan of Treatment Upcoming Encounters Date Type Department Care Team (Late st Contact Info) Description 03/14/2025 10:45 AM CDT Office Visit [facility] - Internal Medicine - [place] [address] [place] [address] Kevan Carmichael MD [address] [place] [address] documented as of this encounter Visit Diagnoses Not on filedocumented in this encounter Additional Health Concerns Assessment Noted Time PHQ-9 Depression Total Score: 0 12/04/19 21 2:00 PM CDT documented as of this encounter Care Teams Auto Body Worker Relationship Specialty Start Date End Date Kevan Carmichael MD [address] [place] [address] PCP - General Internal Medicine 12/16/17 Connor Underwood MD #[address] [address] Consulting Physician Colon and Rectal Surgery 07/15/23 documented as of this encounter
--- OUTSIDE RECORDS SUMMARY | 2024-12-14 13:15 | XMS_ITS | Encounter Summary ---
Author Organization [facility] Address [address] [place] [address] Phone Care Team Providers Care Marketing Co Op Name Role Phone Kevan Carmichael MD Primary Care Provider Connor Underwood MD Unavailable Reason for Visit * Reason Comments Medication Refill Encounter Details Date Type Department Care Team (Late st Contact Info) Description 12/11/2023 Refill [facility] - Internal Medicine - [place] [address] [place] [address] Kevan Carmichael MD [address] [place] [address] Medication Refill Social History Tobacco Use Types Packs/Day Years Used Date Smoking Tobacco: Former Cigarettes 0.3 16.7 1 999 - 06/21/2015 Passive Smoke Exposure: Past Smokeless Tobacco: Never Alcohol Use Standard Drinks/Week Comments Yes 2 (1 standard drink = 0.6 oz pur e alcohol) Rare [facility] Utilities Answer Date Recorded In the past 12 months has [employer], gas, oil, or water company threatened to [...] often do you attend oriental orthodox or mu-ism serv ices? Never 10/27/2023 Do you belong [...] Total Score - Questions 1-9 0 11/19 [facility] - Occupational [...] place to sleep or slept in a chcf (including now)? No 10/27/2023 Education Answer Date [...] Telephone Encounter - Nicole Li RN - 12/14/2023 10:13 AM CDT Medication failed the protocol, provider to review and approve the medication order if appropriate. Requested Prescriptions Pending Prescriptions Disp Refills LORazepam (ATIVAN) 0.5 MG Tablet [Pharmacy Med Name: LORAZEPAM 0.5 MG TABLET] 30 Tablet 0 Sig: TAKE 1 TABLET BY MOUTH EVERY DAY NEEDED FOR ANXIETY Not Delegated - Benzodiazepines Protocol Failed - 12/11/2023 3:41 PM Failed - This refill cannot be delegated Passed - Visit with relevant provider in past 12 months or upcoming 90 days Recent Visits Date Type Provider Dept 10/27/23 Office Visit Kevan Carmichael MD [facility] [place] 07/23/23 Office Visit Kevan Carmichael MD [facility] [place] 04/15/23 Office Visit Kevan Carmichael MD [facility] [place] 01/14/23 Office Visit Kevan Carmichael MD [facility] [place] Showing recent visits within past 365 days and meeting all other requirements Future Appointments Date Type Provider Dept 01/25/24 Appointment Kevan Carmichael MD [facility] [place] Showing future appointments within next 90 days and meeting all other requirements documented in this encounter Plan of Treatment Upcoming Encounters Date Type Department Care Team (Late st Contact Info) Description 03/14/2025 10:45 AM CDT Office Visit [facility] - Internal Medicine - [place] [address] [place] [address] Kevan Carmichael MD [address] [place] [address] documented as of this encounter Visit Diagnoses Diagnosis Generalized anxiety disorder documented in this encounter Additional Health Concerns Assessment Noted Time PHQ-9 Depression Total Score: 0 10/27/19 24 11:01 AM 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
--- OUTSIDE RECORDS SUMMARY | 2024-12-14 13:15 | XMS_ITS | Encounter Summary ---
Author Organization [facility] Address [address] [place] [address] Phone Care Team Providers Care Cotton Grower Name Role Phone Kevan Carmichael MD Primary Care Provider Connor Underwood MD Unavailable Reason for Visit * Reason Comments Medication Refill Encounter Details Date Type Department Care Team (Late st Contact Info) Description 03/05/2024 Refill [facility] - Internal Medicine - [place] [address] [place] [address] Kevan Carmichael MD [address] [place] [address] Medication Refill Social History Tobacco Use Types Packs/Day Years Used Date Smoking Tobacco: Former Cigarettes 0.3 16.7 1 999 - 06/21/2015 Passive Smoke Exposure: Past Smokeless Tobacco: Never Alcohol Use Standard Drinks/Week Comments Yes 2 (1 standard drink = 0.6 oz pur e alcohol) Rare [facility] Utilities Answer Date Recorded In the past 12 months has [employer], gas, oil, or water company threatened to [...] declined 10/27/2023 How often do you attend anabaptist or oriental orthodox serv ices? Never 10/27/2023 Do you belong to any clubs o r organizations such as anabaptist groups, unions, fraternal or athletic groups, or [...] Total Score - Questions 1-9 0 11/19 [facility] Occupat ional Health - Occupational [...] place to sleep or slept in a senior care (including now)? No 10/27/2023 Education Answer Date [...] Telephone Encounter - Nicole Li RN - 03/07/2024 9:22 AM CDT Medication failed the protocol, provider to review and approve the medication order if appropriate. Requested Prescriptions Pending Prescriptions Disp Refills lisinopril (PRINIVIL, ZESTRIL) 10 MG Tablet [Pharmacy Med Name: LISINOPRIL 10 MG TABLET] 90 Tablet 0 Sig: TAKE 1 TABLET BY MOUTH EVERY DAY AZEEM Inhibitors Protocol Failed - 03/05/2024 7:45 AM Failed - Serum potassium on record [...] Dept 10/27/23 Office Visit Kevan Carmichael MD [facility] 07/23/23 Office Visit Kevan Carmichael MD [facility] [place] 04/15/23 Office Visit Kevan Carmichael MD [facility] [place] Showing recent visits within past 365 days and meeting all other requirements Future Appointments Date Type Provider Dept 03/22/24 Appointment Kevan Carmichael MD [facility] [place] Showing future appointments within next 90 days and meeting all other requirements documented in this encounter Plan of Treatment Upcoming Encounters Date Type Department Care Team (Late st Contact Info) Description 03/14/2025 10:45 AM CDT Office Visit [facility] - Internal Medicine - [place] [address] [place] [address] Kevan Carmichael MD [address] [place] [address] documented as of this encounter Visit Diagnoses Not on filedocumented in this encounter Additional Health Concerns Assessment Noted Time PHQ-9 Depression Total Score: 0 10/27/19 24 11:01 AM SITE TECHNICIAN documented as of this encounter Care Teams Cotton Grower Relationship Specialty Start Date End Date Kevan Carmichael MD [address] [place] [address] PCP - General Internal Medicine 12/16/17 Connor Underwood MD #[address] [address] Consulting Physician Colon and Rectal Surgery 07/15/23 documented as of this encounter
--- OUTSIDE RECORDS SUMMARY | 2024-12-14 13:15 | XMS_ITS | Encounter Summary ---
Author Organization [facility] Address [address] [place] [address] Phone Care Team Providers Care Health Services Director Name Role Phone Kevan Carmichael MD Primary Care Provider [phone] Connor Underwood MD Unavailable Reason for Visit * Reason Comments Medication Refill Encounter Details Date Type Department Care Team (Late st Contact Info) Description 04/11/2022 Refill [facility] - [place] [address] [place] [address] Stephanie Blackmon, [facility] [address] [place] [address] Medication Refill Social History Tobacco Use Types [...] suspected to have Coronavirus/COVID-19? No / Unsure 04/14/2022 10:10 PM CDT documented as of this encounter Miscellaneous Notes * Telephone Encounter - Nicole Li RN - 04/11/2022 3:31 PM CDT duplicate documented in this encounter Plan of Treatment Upcoming Encounters Date Type Department Care Team (Late st Contact Info) Description 03/14/2025 10:45 AM CDT Office Visit [facility] - Internal Medicine - [place] [address] [place] [address] Kevan Carmichael MD [address] [place] [address] documented as of this encounter Visit Diagnoses Diagnosis Anxiety Anxiety state, unspecified documented in this encounter Additional Health Concerns Assessment Noted Time PHQ-9 Depression Total Score: 0 12/04/19 21 2:00 PM CDT documented as of this encounter Care Teams Health Services Director Relationship Specialty Start Date End Date Kevan Carmichael MD [address] [place] [address] PCP - General Internal Medicine 12/16/17 Connor Underwood MD #[address] [address] Consulting Physician Colon and Rectal Surgery 07/15/23 documented as of this encounter
--- OUTSIDE RECORDS SUMMARY | 2024-12-14 13:15 | XMS_ITS | Encounter Summary ---
Author Organization [facility] Address [address] [place] [address] Phone Care Team Providers Care Distribution Lineman Name Role Phone Kevan Carmichael MD Primary Care Provider Connor Underwood MD Unavailable Reason for Visit * Reason Comments Medication Refill Encounter Details Date Type Department Care Team (Late st Contact Info) Description 03/14/2024 Refill [facility] - Internal Medicine - [place] [address] [place] [address] Kevan Carmichael MD [address] [place] [address] Medication Refill Social History Tobacco Use Types Packs/Day Years Used Date Smoking Tobacco: Former Cigarettes 0.3 16.7 1 999 - 06/21/2015 Passive Smoke Exposure: Past Smokeless Tobacco: Never Alcohol Use Standard Drinks/Week Comments Yes 2 (1 standard drink = 0.6 oz pur e alcohol) Rare [facility] Utilities Answer Date Recorded In the past 12 months has [employer], gas, oil, or water company threatened to [...] declined 10/27/2023 How often do you attend episcopalian or judaism serv ices? Never 10/27/2023 Do you belong to any clubs o r organizations such as episcopalian groups, unions, fraternal or athletic groups, or [...] Total Score - Questions 1-9 0 11/19 [facility] - [...] place to sleep or slept in a custodial (including now)? No 10/27/2023 Education Answer Date [...] Telephone Encounter - Nicole Li RN - 03/14/2024 11:07 AM CDT Medication failed the protocol, provider to review and approve the medication order if appropriate. Requested Prescriptions Pending Prescriptions Disp Refills gabapentin (NEURONTIN) 100 MG Capsule [Pharmacy Med Name: GABAPENTIN 100 MG CAPSULE] 30 Capsule 3 Sig: TAKE 1 CAPSULE BY MOUTH EVERY DAY Not Delegated - Anticonvulsants Excluding Benzodiazepines Protocol Failed - 03/14/2024 11:03 AM Failed - This refill cannot be delegated Passed - Visit with relevant provider in past 12 months or upcoming 90 days Recent Visits Date Type Provider Dept 10/27/23 Office Visit Kevan Carmichael MD [facility] 07/23/23 Office Visit Kevan Carmichael MD [facility] 04/15/23 [facility] Show[facility] recent visits within past 365 days [...] [facility] - Internal Medicine - [place] [address] [place] [address] Kevan Carmichael MD [address] [place] [address] documented as of this encounter Visit Diagnoses Not on filedocumented in this encounter Additional Health Concerns Assessment Noted Time PHQ-9 Depression Total Score: 0 10/27/19 24 11:01 AM COMPOSITION FLOOR LAYER documented as of this encounter Care Teams Distribution Lineman Relationship Specialty Start Date End Date Kevan Carmichael MD [address] [place] [address] PCP - General Internal Medicine 12/16/17 Connor Underwood MD [address] [address] Consulting Physician Colon and Rectal Surgery 07/15/23 documented as of this encounter
--- OUTSIDE RECORDS SUMMARY | 2024-12-14 13:15 | XMS_ITS | Encounter Summary ---
Author Organization [facility] Address [address] [place] [address] Phone Care Team Providers Care Hatchery Supervisor Name Role Phone Kevan Carmichael MD Primary Care Provider [phone] Connor Underwood MD Unavailable Reason for Visit * Reason Comments Medication Refill Encounter Details Date Type Department Care Team (Late st Contact Info) Description 03/18/2024 [facility]ill [facility] - [facility] - [place] [address] [place] [id number] Stephanie Blackmon, [facility] [address] [place] [address] Medication Refill Social History Tobacco Use Types Packs/Day Years Used Date Smoking Tobacco: Former Cigarettes 0.3 16.7 1 999 - 06/21/2015 Passive Smoke Exposure: Past Smokeless Tobacco: Never Alcohol Use Standard Drinks/Week Comments Yes 2 (1 standard drink = 0.6 oz pur e alcohol) Rare [facility] Utilities Answer Date Recorded In the past 12 months has [employer], gas, oil, or water company threatened to shut off services in your home? No 03/22/2024 Social Connection and Isolat ion Panel [NHANES] Answer Date Recorded In a typical week, how many times do you talk on the phone with family, friends, or neighbors? More than three times a week 03/22/2024 How often do you get togethe r with friends or relatives? Patient declined 03/22/2024 How often do you attend chur ch or congregation services? Patient declined 03/22/2024 Do you belong to any clubs o r organizations such as samaritan groups, unions, fraternal or athletic groups, or school groups? Patient declined 03/22/2024 How often do you attend meet ings of the clubs or organizations you belong to? Patient declined 03/22/2024 Are you , , di vorced, , never , or living with a partner? Never 03/22/2024 AUDIT-C Answer Date Recorded Q1: How often do you have a drink containing alc ohol? Monthly or less 03/22/2024 Q2: How many drinks containi ng alcohol do you have on a typical day when you are drinking? 1 or 2 03/22/2024 Q3: How often do you have si x or more drinks on one occasion? Never 03/22/2024 Overall Financial Resource Strain (CARDIA) Answe r Date Recorded How hard is it for you to pa y for the very basics like food, housing, medical care, and heating? Patient declined 03/22/2024 PHQ-2 Answer Date Recorded Total Score - Questions 1-9 0 11/19 [facility] - Occupational Stress Questionnaire Answer Date Recorded Do you feel stress - tense, restless, nervous, or anxious, or unable to sleep at night because your mind is troubled all the time - these days? To some extent 03/22/2024 Exercise Vital Sign Answer Date Recorde d On average, how many days pe r week do you engage in moderate to strenuous exercise (like a brisk walk)? 5 days 03/22/2024 On average, how many minutes do you engage in exercise at this level? 40 min 03/22/2024 Hunger Vital Sign Answer Date Recorded Within the past 12 months, y ou worried that your food would run out before you got the money to buy more. Never true 03/22/20 24 Within the past 12 months, t he food you bought just didn't last and you didn't have money to get more. Never true 03/22/2024 PRAPARE - Transportation Answer Date Re corded In the past 12 months, has l ack of transportation kept you from medical appointments or from getting medications? No 10/2023 In the past 12 months, has l ack of transportation kept you from meetings, work, or from getting things needed for daily living? No 03/22/2024 Housing Stability Vital Sign Answer To e [...] place to sleep or slept in a penitentiary (including now)? No 10/27/2023 Housing Stability Vital Sign Answer To e Recorded In the last 12 months, was t here a time when you were not able to pay the mortgage or rent on time? Patient declined 03/22/20 24 In the past 12 months, how m any times have you moved where you were living? 0 03/22/2024 At any time in the past 12 m [facility], were you homeless or living in a penitentiary (including now)? No 03/22/2024 Education Answer Date Recorded What is the [...] encounter Miscellaneous Notes * Telephone Encounter - Kevan Carmichael MD - 03/22/2024 10:03 AM CDT refilled * Telephone Encounter - Nicole Li RN - 03/21/2024 2:18 PM CDT Pt only had 5 day supply last fill Medication failed the protocol, provider to review and approve the medication order if appropriate. Requested Prescriptions Pending Prescriptions Disp Refills LORazepam (ATIVAN) 0.5 MG Tablet [Pharmacy Med Name: LORAZEPAM 0.5 MG TABLET] 30 Tablet 0 Sig: TAKE 1 TABLET BY MOUTH EVERY DAY NEEDED FOR ANXIETY Not Delegated - Benzodiazepines Protocol Failed - 03/18/2024 1:05 PM Failed - This refill cannot be delegated Passed - Visit with relevant provider in past 12 months or upcoming 90 days Recent Visits Date Type Provider Dept 10/27/23 Office Visit Kevan Carmichael MD [facility] [place] 07/23/23 Office Visit Kevan Carmichael MD [facility] [place] 04/15/23 Office Visit Kevan Carmichael MD [facility] [place] Showing recent visits within past 365 days and meeting all other requirements Future Appointments Date Type Provider Dept 03/22/24 Appointment Kevan Carmichael MD [facility] [place] Showing future appointments within next 90 days and meeting all other requirements documented in this encounter Plan of Treatment Upcoming Encounters Date Type Department Care Team (Late st Contact Info) Description 03/14/2025 10:45 AM CDT Office Visit [facility] - Internal [facility] [address] [place] [address] Kevan Carmichael MD [address] [place] [address] documented as of this encounter Visit Diagnoses Diagnosis Generalized anxiety disorder documented in this encounter Additional Health Concerns Assessment Noted Time PHQ-9 Depression Total Score: 0 10/27/19 24 11:01 AM HOOKER UP documented as of this encounter Care Teams Hatchery Supervisor Relationship Specialty Start Date End Date Kevan Carmichael MD [address] [place] [address] PCP - General Internal Medicine 12/16/17 Connor Underwood MD #[address] [address] Consulting Physician Colon and Rectal Surgery 07/15/23 documented as of this encounter
--- OUTSIDE RECORDS SUMMARY | 2024-12-14 13:15 | XMS_ITS | Encounter Summary ---
Author Organization [facility] Address [address] [place] [address] Phone Care Team Providers Care Coal Trimmer Machine Operator Name Role Phone Kevan Carmichael MD Primary Care Provider Connor Underwood MD Unavailable Reason for Visit * Reason Comments Medication Refill Encounter Details Date Type Department Care Team (Late st Contact Info) Description 10/12/2023 Refill [facility] - [place] [address] [place] [address] Kevan Carmichael MD [address] [place] [address] Medication Refill Social History Tobacco Use Types [...] encounter Miscellaneous Notes * Telephone Encounter - Kristin Melendez RN - 10/12/2023 9:31 AM AREA MANAGER Per PDMP, dispensed 09-11-23, as 30-day supply Medication failed the protocol, provider to review and approve the medication order if appropriate. Requested Prescriptions Pending Prescriptions Disp Refills LORazepam (ATIVAN) 0.5 MG Tablet [Pharmacy Med Name: LORAZEPAM 0.5 MG TABLET] 30 Tablet 2 Sig: TAKE 1 TABLET BY MOUTH EVERY DAY NEEDED FOR ANXIETY Not Delegated - Benzodiazepines Protocol Failed - 10/12/2023 9:12 AM Failed - This refill cannot be delegated Passed - Visit with relevant provider in past 12 months or upcoming 90 days Recent Visits Date Type Provider Dept 07/23/23 Office Visit Kevan Carmichael MD [facility] [place] 04/15/23 Office Visit Kevan Carmichael MD [facility] [place] 01/14/23 Office Visit Kevan Carmichael MD [facility] [place] 10/16/22 Office Visit Kevan Carmichael MD [facility] [place] Showing recent visits within past 365 days and meeting all other requirements Future Appointments Date Type Provider Dept 10/27/23 Appointment Kevan Carmichael MD [facility] [place] Showing future appointments within next 90 days and meeting all other requirements MANAGER documented in this encounter Plan of Treatment Upcoming Encounters Date Type Department Care Team (Late st Contact Info) Description 03/14/2025 10:45 AM CDT [facility] - [place] [address] [place] [id number] Kevan Carmichael MD [address] [place] [address] documented as of this encounter Visit Diagnoses Diagnosis Generalized anxiety disorder documented in this encounter Additional Health Concerns Assessment Noted Time PHQ-9 Depression Total Score: 0 12/04/19 21 2:00 PM CDT documented as of this encounter Care Teams Coal Trimmer Machine Operator Relationship Specialty Start Date End Date Kevan Carmichael MD [address] [place] [address] PCP - General Internal Medicine 12/16/17 Connor Underwood MD [address] [address] Consulting Physician Colon and Rectal Surgery 07/15/23 documented as of this encounter
--- OUTSIDE RECORDS SUMMARY | 2024-12-14 13:15 | XMS_ITS | Encounter Summary ---
Author Organization [facility] Address [address] 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 Name Role Phone Kevan Carmichael MD Primary Care Provider [phone] Connor Underwood MD Unavailable Reason for Visit * Reason Comments Laceration Encounter Details Date Type Department Care Team (Late st Contact Info) Description 12/12/2024 8:32 PM CDT - 12/12/2024 9:28 PM CDT Emergency [facility] Emergency [address] [place] [id number] Mariely Pope APRN, IMAGING TECH [address] [place] [address] Skin tear of right hand without complication, initial encounter Discharge Disposition: Discharged to home or Selfcare Social History Tobacco Use Types Packs/Day Years Used Date Smoking Tobacco: Former Cigarettes 0.3 16.7 1 999 - 06/21/2015 Passive Smoke Exposure: Past Smokeless Tobacco: Never Alcohol Use Standard Drinks/Week Comments Yes 2 (1 standard drink = 0.6 oz pur e alcohol) Rare [facility] Utilities Answer Date Recorded In the past 12 months has e electric, gas, oil, or water company threatened to [...] often do you attend chur ch or oriental orthodox services? Patient declined 03/22/2024 Do you belong to any clubs o r organizations such as quaker groups, unions, fraternal or athletic groups, or [...] Total Score - Questions 1-9 0 11/19 [facility] - Occupational [...] place to sleep or slept in a usp (including now)? No 10/27/2023 Housing Stability Vital [...] any time in the past 12 m [facility], were you homeless or living in a usp (including now)? No 03/22/2024 Education Answer Date [...] on file documented as of this encounter Last Filed Vital Signs Vital Sign Reading Time Taken Comments Blood Pressure 135/75 12/12/2024 9:27 PM CDT Pulse 95 12/12/2024 8:36 PM CDT Temperature 37.3 C (99.1 F) 12/12/2024 8:36 PM CDT Respiratory Rate 16 12/12/2024 8:36 PM CDT Oxygen Saturation 97% 12/12/2024 8:36 PM CDT Inhaled Oxygen Concentration - - Weight 149.7 kg (330 lb) 12/12/2024 8:36 PM CDT Height 172.7 cm (5' 8 ) 12/12/2024 8:36 PM CDT Body Mass Index 50.18 12/12/2024 8:36 PM CDT documented in this encounter Discharge Instructions * Discharge Instructions* Mariely Pope APRN, CNP - 12/12/2024 9:19 PM CDT Wear splint as directed. Keep wound clean and dry. Take antibiotics as directed. Follow up with your PCP as needed. documented in this encounter Medications at Time of Discharge busPIRone (BUSPAR) 5 MG Tablet TAKE 1 TABLET BY MOUTH TWICE A DAY 180 Tablet 1 07/07/2024 cephALEXin (KEFLEX) 500 MG Capsule Take 1 Capsule by mouth 4 times daily for 5 days. 20 Capsule 12/12/2024 12/17/2024 gabapentin (NEURONTIN) 100 MG Capsule TAKE 1 CAPSULE BY MOUTH EVERY DAY 30 Capsule 3 11/21/2024 lisinopril (PRINIVIL, ZESTRIL) 10 MG Tablet Take 1 Tablet by mouth daily. 90 Tablet 11/28/2024 LORazepam (ATIVAN) 0.5 MG TabletIndications :Generalized anxiety disorder Take 1 Tablet by mouth daily as needed for Anxiety. 30 Tablet 1 11/28/2024 omeprazole (PriLOSEC) 40 MG CAPSULE DELAYED RELEASE TAKE 1 CAPSULE BY MOUTH EVERY DAY 90 Capsule 1 08/02/2024 documented as of this encounter ED Notes * Nora Lux RN - 12/12/2024 9:27 PM CDT Patient discharged. Discharge instructions and patient educational material reviewed with patient; questions and concerns addressed; patient verbalizes understanding, using teach back. Patient was given 1 prescriptions. Patient discharged per ambulation with steady gait. * Nora Lux RN - 12/12/2024 9:17 PM CDT ERNP at bedside performing laceration repair. * Mariely Pope APRN, IMAGING TECH - 12/12/2024 8:57 PM CDTAssociated Order(s): Laceration Repair Chief Complaint Patient presents with Laceration Patient is a 44-year-old male who presents complaining of laceration to right index finger that happened at work prior to arrival. Patient reports possibly cutting finger on a screw. Bleeding controlled with dressing. Patient reports tetanus is up-to-date. He denies all other injuries or complaints. Patient reports a history of hypertension, kidney stones, GERD and anxiety. No current facility-administered medications for this encounter. Current Outpatient Medications Medication Sig Dispense Refill busPIRone (BUSPAR) 5 MG Tablet TAKE 1 TABLET BY MOUTH TWICE A DAY 180 Tablet 1 cephALEXin (KEFLEX) 500 MG Capsule Take 1 Capsule by mouth 4 times daily for 5 days. 20 Capsule 0 gabapentin (NEURONTIN) 100 MG Capsule TAKE 1 CAPSULE BY MOUTH EVERY DAY 30 Capsule 3 lisinopril (PRINIVIL, ZESTRIL) 10 MG Tablet Take 1 Tablet by mouth daily. 90 Tablet 0 LORazepam (ATIVAN) 0.5 MG Tablet Take 1 Tablet by mouth daily as needed for Anxiety. 30 Tablet 1 omeprazole (PriLOSEC) 40 MG CAPSULE DELAYED RELEASE TAKE 1 CAPSULE BY MOUTH EVERY DAY 90 Capsule 1 No Known Allergies Past Medical History Positives Diagnosis Date Anxiety GERD (gastroesophageal reflux disease) Hypertension Kidney stones Marijuana use Muscle spasm Obesity Past Surgical History: Procedure Laterality Date COLONOSCOPY N/A 08/31/2023 Procedure: COLONOSCOPY - DIVERTICULOSIS; Surgeon: Connor Underwood MD; Location: [facility]; Service:General CYSTOURETHROSCOPY kidney stone, with stent placement DENTAL SURGERY TONSILLECTOMY AND ADENOIDECTOMY UPPER GASTROINTESTINAL ENDOSCOPY N/A 10/08/2021 Procedure: EGD - DILATED WITH SAVORY 54FR, ANTRAL ULCER BIOPSIES,; Surgeon: Molly Morrison MD; Location: [facility]; Service: Gastroenterology Social History Socioeconomic History Marital status: Single Spouse name: Not on file Number of children: Not on file Years of education: Not on file Highest education level: Bachelor's degree (e.g., BA, AB, BS) Occupational History Not on file Tobacco Use Smoking status: Former Current packs/day: 0.00 Average packs/day: 0.3 packs/day for 16.7 years (4.2 ttl pk-yrs) Types: Cigarettes Start date: 1998 Quit date: 06/21/2015 Years since quittin.4 Passive exposure: Past Smokeless tobacco: Never Vaping Use Vaping status: Never Used Substance and Sexual Activity Alcohol use: Yes Alcohol/week: 1.2 oz Types: 2 Cans of beer per week Comment: Rare Drug use: Not Currently Types: Marijuana Comment: quit 2021 Sexual activity: Not Currently Partners: Female Other Topics Concern Not on file Social History Narrative Not on file Social Drivers of Health Financial Resource Needs: Patient Declined (03/22/2024) Overall Financial Resource Strain (CARDIA) Difficulty of Paying Living Expenses: Patient declined Food Insecurity Needs: No Food Insecurity (03/22/2024) Hunger Vital Sign Worried About Running Out of Food in the Last Year: Never true Ran Out of Food in the Last Year: Never true Transportation Needs: No Transportation Needs (03/22/2024) PRAPARE - Transportation Lack of Transportation (Medical): No Lack of Transportation (Non-Medical): No Physical Activity: Sufficiently Active (03/22/2024) Exercise Vital Sign Days of Exercise per Week: 5 days Minutes of Exercise per Session: 40 min Stress: Stress Concern Present (03/22/2024) [employer] - Occupational Stress Questionnaire Feeling of Stress : To some extent Social Integration: Unknown (03/22/2024) Social Connection and Isolation Panel [NHANES] Frequency of Communication with Friends and Family: More than three times a week Frequency of Social Gatherings with Friends and Family: Patient declined Attends Yarsanism Services: Patient declined Active Member of Clubs or Organizations: Patient declined Attends Club or Organization Meetings: Patient declined Marital Status: Never Personal Safety: Low Risk (12/12/2024) Personal Safety Feels Unsafe at Home or Work/School: no Feels Threatened by Someone: no Does Anyone Try to Keep You From Having Contact with Others or Doing Things Outside Your Home?: no Physical Signs of Abuse Present: no Housing Stability: Unknown (03/22/2024) Housing Stability Vital Sign Unable to Pay for Housing in the Last Year: Patient declined Number of Times Moved in the Last Year: 0 Homeless in the Last Year: No BP 144/87 Pulse 95 Temp 99.1 ??F (37.3 ??C) (Tympanic) Resp 16 Ht 5' 8 (1.727 m) Wt 330 lb (149.7 kg) SpO2 97% BMI 50.18 kg/m?? Review of Systems Skin: Positive for wound. All other systems reviewed and are negative. Physical Exam Vitals and nursing note reviewed. Constitutional: General: He is not in acute distress. Appearance: He is well-developed. He is not diaphoretic. HENT: Head: Normocephalic and atraumatic. Right Ear: External ear normal. Left Ear: External ear normal. Nose: Nose normal. Mouth/Throat: Mouth: Mucous membranes are moist. Eyes: Conjunctiva/sclera: Conjunctivae normal. Neck: Trachea: No tracheal deviation. Cardiovascular: Rate and Rhythm: Normal rate. Pulses: Normal pulses. Pulmonary: Effort: Pulmonary effort is normal. Abdominal: General: There is no distension. Palpations: Abdomen is soft. Tenderness: There is no abdominal tenderness. Musculoskeletal: General: Normal range of motion. Cervical back: Normal range of motion. Skin: General: Skin is warm and dry. Findings: Laceration present. Comments: Laceration/skin tear to dorsal right index finger, small crescent shaped, bleeding controlled with dressing, distal sensation intact, good capillary refill. Neurological: Mental Status: He is alert. Mental status is at baseline. Psychiatric: Mood and Affect: Mood normal. Laceration Repair Performed by: Mariely Pope APRN, CNP Authorized by: Mariely Pope APRN, CNP Consent: Risks discussed: Infection Alternatives discussed: No treatment and delayed treatment Edwards protocol: Patient identity confirmed: Verbally with patient Anesthesia: Anesthesia method: None Laceration details: Location: Finger Finger location: R index finger Length (cm): 0.5 Pre-procedure details: Preparation: Patient was prepped and draped in usual sterile fashion Treatment: Area cleansed with: Jennifer Amount of cleaning: Standard Skin repair: Repair method: Tissue adhesive Repair type: Repair type: Simple Post-procedure details: Dressing: Non-adherent dressing and splint for protection No results found for this or any previous visit (from the past 24 hours). Imaging Results None Medical Decision Making Differential diagnosis: Laceration, abrasions, skin avulsion, skin tear Small laceration/skin tear to right index finger. Distal sensation intact, good capillary refill. Skin glue and Steri-Strips use for closure after thorough cleansing of wound. Finger splint applied. Discussed wound care and follow up. Started on cephalexin at this time. Clinical Impression 1. Skin tear of right hand without complication, initial encounter Disposition: Discharge The patient remained stable throughout their ED stay. My clinical impression was discussed with thepatient/family. Labs and radiology results were reviewed with them. I gave them the opportunity to ask questions, and addressed them as completely as possible given the information available at present. The therapeutic plan was discussed, advised to take medications as instructed, instructions weregiven and the importance of primary care follow up was stressed and encouraged. The patient/family voiced understanding of the plan, indications to return, and the need for follow up. Cosigned by Chad Last MD at 12/13/2024 2:42 AM CDT * Nora Lux RN - 12/12/2024 8:38 PM CDT Patient ambulatory to ER c/o right finger laceration from work. States he cut it on a possible screw. Bleeding controlled at this time. Believes Tdap in up to date. documented in this encounter Miscellaneous Notes * PatientPass Patient Instructions - Mariely Pope APRN, GANGA - 12/12/2024 9:20 PM CDT Images from the original note were not included. Patient Education Table of Contents Laceration Care, Adult To view videos and all your education online visit, [email or web address] or scan this QR code with your smartphone. Access to this content will in one year. Laceration Care, Adult A laceration is a cut that may go through all layers of the skin. The cut may also go into the tissue that is right under the skin. Some cuts heal on their own. Other cuts need to be closed with stitches (sutures), hellen, skin adhesive strips, or skin glue. Taking care of your cut lowers your risk of infection, helps your injury heal better, and may prevent scarring. General tips Keep your wound clean and dry. Do not scratch or pick at your wound. Wash your hands with soap and water for at least 20 seconds before and after touching your wound orchanging your bandage (dressing). If you cannot use soap and water, use hand criminal researcher. Do not usedisinfectants or antiseptics, such as rubbing alcohol, to clean your wound unless told byyour doctor. If you were given a bandage, change it at least once a day, or as told by your doctor. You should also change it if it gets wet or dirty. How to take care of your cut If your doctor used stitches or hellen: Keep the wound fully dry for the first 24 hours, or as told by your doctor. After that, you may take a shower or a bath. Do not soak the wound in water until after the stitches or hellen have been taken out. Clean the wound once a day, or as told by your doctor. To do this: ? Wash the wound with soap and water. ? Rinse the wound with water to remove all soap. ? Pat the wound dry with a clean towel. Do not rub the wound. After you clean the wound, put a thin layer of antibiotic ointment, another ointment, or a nonstickbandage on it as told by your doctor. This will help to: ? Prevent infection. ? Keep the bandage from sticking to the wound. Have your stitches or hellen taken out as told by your doctor. If your doctor used skin adhesive strips: Do not get the skin adhesive strips wet. You can take a shower or a bath, but keep the wound dry. If the wound gets wet, pat it dry with a clean towel. Do not rub the wound. Skin adhesive strips fall off on their own. You can trim the strips as the wound heals. Do not takeoff any strips that are still stuck to the wound unless told by your doctor. The strips will fall off after a while. If your doctor used skin glue: You may take a shower or a bath, but try to keep the wound dry. Do not soak the wound in water. After you take a shower or a bath, pat the wound dry with a clean towel. Do not rub the wound. Do not do any activities that will make you sweat a lot until the skin glue has fallen off. Do not apply liquid, cream, or ointment medicine to your wound while the skin glue is still on. If a bandage is placed over the wound, do not put tape right on top of the skin glue. Do not pick at the glue. The skin glue usually stays on for 5?10 days. Then, it falls off the skin. Follow these instructions at home: Medicines Take [id number] and prescription medicines only as told by your doctor. If you were prescribed an antibiotic medicine, take or apply it as told by your doctor. Do not stopusing it even if you start to feel better. Managing pain and swelling If told, put ice on the injured area. To do this: ? Put ice in a plastic bag. ? Place a towel between your skin and the bag. ? Leave the ice on for 20 minutes, 2?3 times a day. ? Take off the ice if your skin turns bright red. This is very important. If you cannot feel pain, heat, or cold, you have a greater risk of damage to the area. Raise the injured area above the level of your heart while you are sitting or lying down. General instructions Avoid any activity that could make your wound reopen. Check your wound every day for signs of infection. Check for: ? More redness, swelling, or pain. ? Fluid or blood. ? Warmth. ? Pus or a bad smell. Keep all follow-up visits. Contact a doctor if: You got a tetanus shot and you have any of these problems where the needle went in: ? Swelling. ? Very bad pain. ? Redness. ? Bleeding. A wound that was closed breaks open. You have a fever. You have any of these signs of infection in your wound: ? More redness, swelling, or pain. ? Fluid or blood. ? Warmth. ? Pus or a bad smell. You see something coming out of the wound, such as wood or glass. Medicine does not make your pain go away. You notice a change in the color of your skin near your wound. You need to change the bandage often. You have a new rash. You lose feeling (have numbness) around the wound. Get help right away if: You have very bad swelling around the wound. Your pain suddenly gets worse and is very bad. You have painful lumps near the wound or on skin anywhere on your body. You have a red streak going away from your wound. The wound is on your hand or foot, and: ? You cannot move a finger or toe. ? Your fingers or toes look pale or bluish. Summary A laceration is a cut that may go through all layers of the skin. The cut may also go into the tissue right under the skin. Some cuts heal on their own. Others need to be closed with stitches, hellen, skin adhesive strips,or skin glue. Follow your doctor's instructions for caring for your cut. Proper care of a cut lowers the risk of infection, helps the cut heal better, and may prevent scarring. This information is not intended to replace advice given to you by your health care provider. Make sure you discuss any questions you have with your health care provider. Document Released: 2009-02-23 Document Updated: 2021-11-14 Document Reviewed: 2021-11-14 [employer] Patient Education ? 2024 [employer] documented in this encounter Plan of Treatment Upcoming Encounters Date Type Department Care Team (Late st Contact Info) Description 03/14/2025 10:45 AM CDT Office Visit [facility] - Internal Medicine - [place] [address] [place] [id number] Kevan Carmichael MD [address] [place] [id number] documented as of this encounter Procedures Procedure Name Priority Date/Time Associated Diagnosis Comments LACERATION REPAIR Routine 12/12/2024 8:5 7 PM CDT documented in this encounter Results * Laceration Repair (12/12/2024 8:57 PM CDT) Narrative Chad Last MD - 12/12/2024 8:57 PM CDT Chad Last MD 12/13/2024 2:42 AM Laceration Repair Performed by: Mariely Pope APRN, CNP Authorized by: Mariely Pope APRN, CNP Consent: Risks discussed: Infection Alternatives discussed: No treatment and delayed treatment Edwards protocol: Patient identity confirmed: Verbally with patient Anesthesia: Anesthesia method: None Laceration details: Location: Finger Finger location: R index finger Length (cm): 0.5 Pre-procedure details: Preparation: Patient was prepped and draped in usual sterile fashion Treatment: Area cleansed with: Shur-Clens Amount of cleaning: Standard Skin repair: Repair method: Tissue adhesive Repair type: Repair type: Simple Post-procedure details: Dressing: Non-adherent dressing and splint for protection Mariely Pope APRN, CNP PROCEDURE/MINOR NERI RGICAL ORDERABLES Final Result documented in this encounter Visit Diagnoses Diagnosis Skin tear of right hand without complication, initial encounter- Primary documented in this encounter Additional Health Concerns Assessment Noted Time PHQ-9 Depression Total Score: 0 11/29/19 25 10:11 AM CDT documented as of this encounter Care Teams Pick And Shovel Man Relationship Specialty Start Date End Date Kevan Carmichael MD [address] [place] [address] PCP - General Internal Medicine 12/16/17 Connor Underwood MD #[address] [address] Consulting Physician Colon and Rectal Surgery 07/15/23 documented as of this encounter
--- OUTSIDE RECORDS SUMMARY | 2024-12-14 13:15 | XMS_ITS | Clinical Summary ---
Author Organization [facility] Address [address] [place] [address] Phone Care Team Providers Care Stopper Setter Name Role Phone Kevan Carmichael MD Primary Care Provider Connor Underwood MD Unavailable Allergies No known active allergies Medications busPIRone (BUSPAR) 5 MG Tablet TAKE 1 TABLET BY MOUTH TWICE A DAY 180 Tablet 1 07/07/20 24 Active omeprazole (PriLOSEC) 40 MG CAPSULE DELAYED RELEASE TAKE 1 CAPSULE BY MOUTH EVERY DAY 90 Capsule 1 08/02/20 24 Active gabapentin (NEURONTIN) 100 MG Capsule TAKE 1 CAPSULE BY MOUTH EVERY DAY 30 Capsule 3 11/22/19 25 Active lisinopril (PRINIVIL, ZESTRIL) 10 MG Tablet Take 1 Tablet by mouth daily. 90 Tablet 11/29/19 25 Active LORazepam (ATIVAN) 0.5 MG TabletIndicati ons:Generalize d anxiety disorder Take 1 Tablet by mouth daily as needed for Anxiety. 30 Tablet 1 11/29/19 25 Active cephALEXin (KEFLEX) 500 MG Capsule Take 1 Capsule by mouth 4 times daily for 5 days. 20 Capsule 12/13/19 25 025 Active meloxicam (MOBIC) 15 MG Tablet Take 1 Tablet by mouth daily. Take with meal 15 Tablet 03/22/20 24 025 Discontinued(Me d List Clean Up) gabapentin (NEURONTIN) 100 MG Capsule TAKE 1 CAPSULE BY MOUTH EVERY DAY 30 Capsule 3 07/18/20 24 025 Discontinued lisinopril (PRINIVIL, ZESTRIL) 10 MG Tablet TAKE 1 TABLET BY MOUTH EVERY DAY 90 Tablet 09/05/20 24 025 Discontinued(Re order) LORazepam (ATIVAN) 0.5 MG TabletIndicati ons:Generalize d anxiety disorder TAKE 1 TABLET BY MOUTH EVERY DAY NEEDED FOR ANXIETY 30 Tablet 10/31/19 25 025 Discontinued(Re order) Active Problems Problem Noted Date Diagnosed Date Muscle cramps 10/16/2022 Generalized anxiety disorder 06/12/2022 Nonalcoholic fatty liver disease 06/12/2022 Personal history of peptic ulcer disease 022 Right lumbar radiculopathy 12/05/2021 Family history of prostate cancer 12/03/2020 GERD without esophagitis 12/03/2020 Family history of skin cancer 12/03/2020 Essential hypertension, benign 08/24/2019 Encounters Date Type Department Care Team Description 12/12/2024 8:32 PM CDT - 12/12/2024 9:28 PM CDT Emergency [facility] [address] [place] [id number] Mariely Pope APRN, GANGA Skin tear of right hand without complication, initial encounter Discharge Disposition: Discharged to home or Selfcare 12/12/2024 Travel 11/28/2024 10:45 AM CDT Office Visit [facility] [address] [place] [address] Kevan Carmichael MD Essential hypertension, benign (Primary Dx); Generalized anxiety disorder; Hyperglycemia; GERD without esophagitis; Muscle cramps Discharge Disposition: Discharged to home or Selfcare 11/28/2024 Travel 11/21/2024 Refill [facility] [address] [place] [address] Kevan Carmichael MD Medication Refill 10/31/2024 Refill [facility] [address] [place] [address] Kevan Carmichael MD Medication Refill 09/26/2024 Refill [facility] - [place] [address] [place] [address] Kevan Carmichael MD Medication Refill 09/20/2024 10:30 AM [facility]CRATCH BRUSHER [facility] Visit [facility] - [place] [address] [facility] [place] [address] Kevan Carmichael MD Kumar, Raman, MD Morbid obesity with BMI of 50.0-59.9, adult (HCC) (Primary Dx); Umbilical hernia without obstruction or gangrene Discharge Disposition: Discharged to home or Selfcare 09/19/2024 Travel from Last 3 Months Immunizations Immunization Administration Dates Next Due Covid-19 Vaccine, Vector-nr, Rs-ad26, Pf, 0.5 Ml (Optireno/Colondee&Colondee) 02/01/2021 Hepatitis A Vaccine 12/07/2016 Influenza Vaccine greater than 3 yrs 07/06/2020 Influenza Vaccine, MDCK,quad rivalent, pres free 08/11/2017 Influenza Vaccine, Quadrivalent, PF 06/12/2022,0 06/06/2021,06/22/2018 Influenza, Injectable, Mdck, Preservative Free 05/28/2023 Influenza, Recombinant, Quadrivalent,injectable, Pf 07/06/2020 Influenza,Split Virus,Trivalent,Injectable,PF 08/29/2024 TDAP Vaccine 11/13/2022 Family History Medical History Relation Name Comments No Known Problems Brother 1 No Known Problems Brother 2 Cancer Father Prostate Cancer Father Cancer Maternal Grandfather Lung Cancer Maternal Grandfather No Known Problems Maternal Grandmother Depression Mother Diabetes Mother Other-comment Mother Obersity and O SA. Cancer Paternal Grandfather No Known Problems Paternal Grandmother Relation Name Status Comments Brother 1 Alive Brother 2 Alive Father Maternal Grandfather Maternal Grandmother Alive Mother Alive Paternal Grandfather Paternal Grandmother Alive Social History Tobacco Use Types Packs/Day Years Used Date Smoking Tobacco: Former Cigarettes 0.3 16.7 1 999 - 06/21/2015 Passive Smoke Exposure: Past Smokeless Tobacco: Never Tobacco Cessation:Counseling Given: No Alcohol Use Standard Drinks/Week Comments Yes 2 (1 standard drink = 0.6 oz pur e alcohol) Rare [facility] Utilities Answer Date Recorded In the past [...] often do you attend chur ch or confucianism services? Patient declined 03/22/2024 Do you belong [...] Total Score - Questions 1-9 0 11/19 [facility] - Occupational Stress [...] money to buy more. Never true 03/22/20 Within the past 12 months, t he [...] or rent on time? Patient declined 10/27/19 Number of Places Lived in the Last Year Not on f ile 10/27/2023 In the last 12 months, was t here a time when you did not have a steady place to sleep or slept in a senior living (including now)? No 10/27/2023 Housing Stability Vital [...] any time in the past [address] [facility], were you homeless or living in a senior living (including now)? No 03/22/2024 Education Answer Date [...] Mass Index 50.18 12/12/2024 8:36 PM CDT Plan of Treatment Upcoming Encounters Date Type Department Care Team (Late st Contact Info) Description 03/14/2025 10:45 AM CDT Office Visit [facility] - [place] [address] [place] [phone] Kevan Carmichael MD [address] [place] [address] Health Maintenance Due Date Last Done Comments Hepatitis C Virus (HCV) Screening 1980 Hepatitis B Immunization (1 of 3 - 19+ 3-dose series) 1997 SARS-COV-2 Immunization ( season) 2024 02/01/2021 Td Immunization Every 10 Years (Adults With 1 Tdap) 11/13/2032 11/13/2022 Colonoscopy 08/31/2033 08/31/2023, 08/31/2023 Colorectal Cancer Screening 08/31/2033 Respiratory Syncytial Virus (RSV) Immunization (Adult) (1 - 1-dose 75+ series) 2053 08/31/2023 DTaP/Tdap/Td Immunization Discontinued 11/13/2022 Influenza Immunization Completed , 05/28/2023, 06/12/2022, Additional history exists Meningococcal Immunization (ACWY) Aged Out No longer eligible based on patient's age to complete this topic Pneumococcal Immunization Combined Aged Out No longer eligible based on patient's age to complete this topic Rotavirus Immunization Aged Out No lo nger eligible based on patient's age to complete this topic Procedures Procedure Name Priority Date/Time Associated Diagnosis Comments LACERATION REPAIR Routine 12/12/2024 8:5 7 PM CDT from Last 3 Months Results * Laceration Repair (12/12/2024 8:57 PM CDT) Narrative Chad Last MD - 12/12/2024 8:57 PM CDT Chad Last MD 12/13/2024 2:42 AM Laceration Repair Performed by: Mariely Pope APRN, CNP Authorized by: Mariely Pope APRN, CNP Consent: Risks discussed: Infection Alternatives discussed: No treatment and delayed treatment [place] protocol: Patient identity confirmed: Verbally with patient Anesthesia: Anesthesia method: None Laceration details: Location: Finger Finger location: R index finger Length (cm): 0.5 Pre-procedure details: Preparation: Patient was prepped and draped in usual sterile fashion Treatment: Area cleansed with: Shмария-Cleleo Amount of cleaning: Standard Skin repair: Repair method: Tissue adhesive Repair type: Repair type: Simple Post-procedure details: Dressing: Non-adherent dressing and splint for protection Mariely Pope APRN, CNP PROCEDURE/MINOR NERI RGICAL ORDERABLES Final Result from Last 3 Months Insurance [employer] RE[employer] [facility] Care Teams Stopper Setter Relationship Specialty Start Date End Date Kevan Carmichael MD [address] [place] [address] PCP - General Internal Medicine 12/16/17 Connor Underwood MD [address] [address] Consulting Physician Colon and Rectal Surgery 07/15/23
== END 2024-12-14 12:20 | disposition home or self-care (01) ==
PROVIDERS: Emergency Provider Nurse Practitioner Family; PCP Internal Medicine
DX: Z48.01 Encounter for change or removal of surgical wound dressing (principal); I10 Essential (primary) hypertension; K21.9 Gastro-esophageal reflux disease without esophagitis; F41.9 Anxiety disorder, unspecified
CPT/HCPCS: 99212; G0463